=== PATIENT | male | born 1940 | race Asian ===

== ENCOUNTER 2017-08-08 12:46 | Inpatient (IN) | payer MEDICARE, MEDICAID ==
--- NOTE | 2017-08-08 12:55 | ED Physician Chart ---
ED Chief Complaint/HPI - Patient Information Date Seen:: 08/08/17 Time Seen:: 12:40 Chief Complaint:: Fever History of Present Illness:: onset x 2 days of fever, AMS, cough, and congestion; no report of trauma, H/As, S/T, neck pain, C/P, SOB, Abd. Pain, A/N/V/D/C, chills, or urinary s/s Historian:: Patient, EMS Review:: Nurse's Note Reviewed, Old Chart Reviewed, EMS run form Reviewed ED Review of Systems - Review of Systems General/Constitutional: Fever, No chills, No weight loss, No weakness, No diaphoresis, No edema, No loss of appetite Skin: No skin lesions, No rash, No bruising Head: No headache, No light-headedness Eyes: No loss of vision, No pain, No diplopia ENT: No earache, No nasal drainage, No sore throat, No tinnitus Neck: No neck pain, No swelling, No thyromegaly, No stiffness, No mass noted Cardio Vascular: No chest pain, No palpitations, No PND, No orthopnea, No edema Pulmonary: SOB, Cough, No sputum, Wheezing GI: No nausea, No vomiting, No diarrhea, No pain, No melena, No hematochezia, No constipation, No hematemesis G/U: No dysuria, No frequency, No hematuria, No nacturia Musculoskeletal: No bone or joint pain, No back pain, No muscle pain Endocrine: No polyuria, No polydipsia Psychiatric: No prior psych history, No depression, No anxiety, No suicidal ideation, No homicidal ideation, No auditory hallucination, No visual hallucination Hematopoietic: No bruising, No lymphadenopathy Allergic/Immuno: No urticaria, No angioedema Neurological: No syncope, No focal symptoms, No weakness, No paresthesia, No headache, No seizure, No dizziness, Confusion, No vertigo ED Past Medical History - Past Medical History Obtainable: Yes Past Medical History: HTN, CAD, Asthma/COPD, Dyslipidemia, Arthritis, Dementia, Other (PNA; Sepsis) Family History: HTN Social History: Non Smoker, No Alcohol, No Drug Use, , Care Facility Surgical History: None Psychiatricy History: Dementia Medication: Reviewed Family Medical History - Family Member Father History Unknown: Yes ED Physical Exam - Physical Examination General/Constitutional: Awake, Well-developed, well-nourished, Alert, No distress, GCS 15, Non-toxic appearing, Ambulatory Head: Atraumatic Eyes: Lids, conjuctiva normal, PERRL, EOMI Skin: Nl inspection, No rash, No skin lesions, No ecchymosis, Well hydrated, No lymphadenopathy ENMT: External ears, nose nl, TM canals nl, Nasal exam nl, Lips, teeth, gums nl , Oropharynx nl, Tonsils nl Neck: Nontender, Full ROM w/o pain, No JVD, No nuchal rigidity, No bruit, No mass, No stridor Respiratory: Nl effort/Exclusion, Clear to Auscultation, No Wheeze/Rhonchi/Rales Cardio Vascular: RRR, No murmur, gallop, rubs, NL S1 S2, Carotid/Femoral/Distal pulses equal bilaterally GI: No tenderness/rebounding/guarding, No organomegaly, No hernia, Normal BS's, Nondistended, No mass/bruits, No McBurney tenderness : No CVA tenderness Extremities: No tenderness or effusion, Full ROM, normal strength in all extremities, No edema, Normal digits & nails Neuro/Psych: Alert/oriented, DTR's symmetric, Normal sensory exam, Normal motor strength, Judgement/insight normal, Mood normal, Normal gait, No focal deficits Misc: Normal back, No paraspinal tenderness ED Labs/Radiology/EKG Results - Lab Results Comments:: BUN: 90; Cr: 1.5; Na+: 151; LA: 3.18; WBC: 11.8; H/H: 11.1/34.5 - Radiology Results Comments:: + Infiltrate - EKG Interpretations EKG Time:: 12:57 Rate & Rhythm: 77; NSR Comments:: non-specific st-t changes ED Septic Shock - . Is Septic Shock (SBP<90, OR Lactate>4 mmol\L) present?: No ED Reassessment (Disposition) - Reassessment Reassessment Condition:: Improved - Diagnosis Diagnosis:: Dx: PNA; Leukocytosis; Sepsis; Anemia; Hypernatremia; Pre-Renal Azotemia; Dehydration - Aftercare/Follow up Instructions Aftercare/Follow-Up Instructions:: Counseled pt regarding lab results/diagnosis & need follow up, Counseled pt & family regarding lab results/diagnosis & need follow up - Patient Disposition Discharge/Transfer:: Acute Care w/in this hosp Accepting Physician:: Dr. Castro Time Called:: 1500 Time Responded:: 15:00 Admitted to:: Med/Surg Spoke to:: Dr. Castro Admitting Medical Physician:: Dr. Castro Condition at Disposition:: Stable, Improved
[2017-08-08 13:18] LABS: % BASOPHILS 0.8 % (0.0-2.0); % EOSINOPHILS 0.1 % (0.0-5.0); % LYMPHOCYTES 10.2 % (20.0-50.0); % MONOCYTES 12.2 % (2.0-10.0); % NEUTROPHILS 76.7 % (40.0-80.0); BASOPHILE ABSOLUTE 0.1 Th/cumm (0-0.2); HEMATOCRIT 34.5 % (41.0-60); HEMOGLOBIN 11.1 gm/dL (12-16); LYMPHOCYTE ABSOLUTE 1.2 Th/cmm (1.5-3.0); MEAN CELL VOLUME 98.8 fl (80-99); MEAN CORPUSCULAR HEMOGLOBIN 31.9 pg (27.0-31.0); MEAN CORPUSCULAR HGB CONC 32.3 pg (28.0-36.0); MEAN PLATELET VOLUME 8.2 fl; MONOCYTE ABSOLUTE 1.4 Th/cmm (0.3-1.0); NEUTROPHILE ABSOLUTE 9.1 Th/cmm (1.8-8.0); PLATELET COUNT 165 Th/cmm (150-400); RED BLOOD COUNT 3.49 Mil/cmm (3.80-5.80); RED CELL DISTRIBUTION WIDTH 16.2 % (11.5-20.0); WHITE BLOOD COUNT 11.8 Th/cmm (4.8-10.8)
[2017-08-08 13:28] LABS: INR 0.98 (0.5-1.4); PROTHROMBIN TIME (TEST) 10.2 SECONDS (9.5-11.5)
[2017-08-08 13:32] LABS: ALB/GLOB RATIO 0.8 (1.0-1.8); ALBUMIN 3.3 gm/dL (4.2-5.5); ALKALINE PHOSPHATASE 45 U/L (34-104); ANION GAP 13.8 (7.0-16.0); BILIRUBIN,TOTAL 0.6 mg/dL (0.3-1.0); CALCIUM SERUM 9.2 mg/dL (8.6-10.3); CARBON DIOXIDE 28.2 mEq/L (21.0-31.0); CHLORIDE 114 mEq/L (98-107); CREATININE - SERUM 1.5 mg/dL (0.7-1.3); CREATININE KINASE 401 U/L (30-223); GLUCOSE 329 mg/dL (70-105); SGOT 34 U/L (13-39); SGPT/ALT 24 U/L (7-52); SODIUM SERUM 151 mEq/L (136-145); TOTAL PROTEIN,SERUM 7.5 gm/dL (6.0-8.3)
[2017-08-08 13:33] LABS: TROP I 0.04 ng/mL (0.01-0.05)
[2017-08-08 13:34] LABS: BUN - UREA NITROGEN 90 mg/dL (7-25)
--- NOTE | 2017-08-08 14:12 | Diagnostic Imaging Report ---
CHEST X-RAY: AP view INDICATION: pain COMPARISON: None FINDINGS: Chronic lung changes are seen with increased bibasilar lung markings. No focal consolidation or effusions. 3 mm density seen projecting along the left lower hemithorax.. Heart size is normal. Atherosclerosis is noted. Degenerative changes of the spine are noted. IMPRESSION: Chronic lung changes with increased bibasilar lung markings probably also chronic. Faint infiltrate is less likely. Nonspecific 3 mm density projecting along the left lower hemithorax. Atherosclerotic vascular disease.
[2017-08-08] MEDS ORDERED: Sodium Chloride 0.9% 1,000 ML IV ONE (14:41)
[2017-08-08] MEDS ORDERED: Levofloxacin 500mg/100mL 500 MG/100 ML BAG IV ONE ×2 (14:46→14:49)
[2017-08-08 14:51] LABS: URINE MICROSCOPIC INDICATED? YES; URINE SOURCE MIDSTREAM
[2017-08-08 14:58] LABS: URINE BILIRUBIN NEGATIVE (NEGATIVE); URINE BLOOD TRACE (NEGATIVE); URINE GLUCOSE (UA) 100 mg/dL (NEGATIVE); URINE KETONE NEGATIVE (NEGATIVE); URINE LEUKOCYTE ESTERASE NEGATIVE (NEGATIVE); URINE NITRATE NEGATIVE (NEGATIVE); URINE PROTEIN 100 mg/dL (NEGATIVE); URINE UROBILINOGEN 0.2 E.U./dL (0.2 - 1.0)
[2017-08-08 15:04] LABS: URINE CLARITY CLEAR (CLEAR); URINE COLOR YELLOW
[2017-08-08 15:07] LABS: URINE BACTERIA NONE SEEN /hpf (NONE SEEN); URINE EPITHELIAL CELLS NONE SEEN /lpf (FEW); URINE WBC NONE SEEN /hpf (0-5)
[2017-08-08] MEDS ORDERED: D5-0.9%NS 1,000 ML IV SCH (22:00)
[2017-08-09] MEDS: INSULIN ASPART SLIDING SCALE 100 UNITS/ML UNIT SUBQ SCH ×4 (01:23→19:03)
[2017-08-09] MEDS ORDERED: Piperacillin Sodium/Tazobact 2.25 gm Vial IV ONE (05:10)
[2017-08-09 06:31] LABS: % BASOPHILS 0.2 % (0.0-2.0); % EOSINOPHILS 0.1 % (0.0-5.0); % LYMPHOCYTES 16.3 % (20.0-50.0); % MONOCYTES 13.4 % (2.0-10.0); HEMATOCRIT 30.5 % (41.0-60); HEMOGLOBIN 10.1 gm/dL (12-16); LYMPHOCYTE ABSOLUTE 1.6 Th/cmm (1.5-3.0); MEAN CELL VOLUME 99.5 fl (80-99); MEAN CORPUSCULAR HEMOGLOBIN 32.8 pg (27.0-31.0); MEAN PLATELET VOLUME 8.4 fl; MONOCYTE ABSOLUTE 1.3 Th/cmm (0.3-1.0); NEUTROPHILE ABSOLUTE 7.1 Th/cmm (1.8-8.0); PLATELET COUNT 148 Th/cmm (150-400); RED BLOOD COUNT 3.06 Mil/cmm (3.80-5.80); RED CELL DISTRIBUTION WIDTH 16.7 % (11.5-20.0)
[2017-08-09 06:59] LABS: ALB/GLOB RATIO 0.7 (1.0-1.8); ALBUMIN 2.9 gm/dL (4.2-5.5); ALKALINE PHOSPHATASE 37 U/L (34-104); ANION GAP 12.4 (7.0-16.0); BILIRUBIN,TOTAL 0.7 mg/dL (0.3-1.0); CALCIUM SERUM 8.6 mg/dL (8.6-10.3); CHLORIDE 121 mEq/L (98-107); CREATININE - SERUM 1.4 mg/dL (0.7-1.3); GLUCOSE 253 mg/dL (70-105); POTASSIUM SERUM 4.4 mEq/L (3.5-5.1); SGOT 33 U/L (13-39); SGPT/ALT 20 U/L (7-52); SODIUM SERUM 155 mEq/L (136-145); TOTAL PROTEIN,SERUM 6.8 gm/dL (6.0-8.3)
[2017-08-09 07:10] LABS: BUN - UREA NITROGEN 84 mg/dL (7-25)
[2017-08-09] MEDS ORDERED: Acetaminophen 500 MG TAB GT PRN (10:09)
[2017-08-09] MEDS ORDERED: Magnesium Hydroxide (MOM) 30 mL UDC GT PRN (10:09)
[2017-08-09] MEDS ORDERED: Albuterol Nebulizer 2.5mg/3mL HHN PRN (10:09)
[2017-08-09] MEDS ORDERED: Ipratropium Neb 0.5 mg/2.5 mL UD HHN PRN (10:09)
[2017-08-09] MEDS ORDERED: Fleet Enema 135 mL RC PRN (10:09)
[2017-08-09] MEDS ORDERED: Dextrose 5% 1,000 ML IV SCH (10:53)
[2017-08-09] MEDS ORDERED: INSULIN HUMAN REGULAR 100 UNITS/ML UNIT SUBQ SCH (11:30)
--- NOTE | 2017-08-09 15:38 | History & Physical ---
ADMIT DATE: 08/08/2017 CHIEF COMPLAINT: Fever, worsening confusion by nursing staff. HISTORY OF PRESENT ILLNESS: The patient is a 77-year-old [place]ugu [place]ine[place] male admitted from the Emergency Room to telemetry floor of [facility] due to multiple complicated medical conditions. The patient became more confused in the shelter [facility] and the patient was transferred to the Emergency Room and subsequently admitted by our ER physician. The patient's white count is elevated to 11,800 in the Emergency Room. He is also very dehydrated with BUN 90, creatinine 1.5, sodium 151, blood sugar is 329 in the Emergency Room. PAST MEDICAL HISTORY: Including dysphagia, status post CVA, Alzheimer disease, COPD, pneumonia, coronary artery disease, renal insufficiency, diabetes, decubitus ulcer. PAST SURGICAL HISTORY: G-tube placement, PICC line placement. MEDICATIONS: See medication reconciliation list. ALLERGIES: No known drug allergy. FAMILY HISTORY: Noncontributory. SOCIAL HISTORY: The patient smoked before, quit years ago. No history of alcohol, IV drug use. REVIEW OF SYSTEMS: As per HPI. PHYSICAL EXAMINATION: GENERAL: A well-developed, thin male in no acute distress. SKIN: There is skin discoloration. There is decubitus ulcer in the sacral area. VITAL SIGNS: Basically stable. HEENT: Normocephalic, atraumatic. Pupils equal, round, react to light and accommodation. CHEST: Symmetrical. LUNGS: ____ appreciable rhonchi at lung base. HEART: Normal sinus rhythm, S1, S2. ABDOMEN: Benign, soft, nontender. EXTREMITIES: No clubbing, cyanosis. Edema bilateral lower extremity 2+. CRANIOLOGICAL: Unremarkable. LABORATORY DATA: Reviewed, seem from computer. ASSESSMENT AND PLAN: 1. Early sepsis: Panculture order and antibiotics will be adjusted accordingly. 2. Early aspiration pneumonia: IVPB antibiotics, which will be adjusted accordingly. 3. Respiratory insufficiency: Aspiration precaution be exercised. 4. Chronic obstructive pulmonary disease: RT protocol. 5. ____: Probably due to dehydration. We will make sure free water has been provided to the patient. 6. Anemia of chronic disease. 7. Leukocytosis: Multifactorial. 8. Acute kidney injury: Try to avoid nephrotoxic medications if possible. 9. Dehydration: IV fluid. 10. Altered level of consciousness. 11. Metabolic encephalopathy and dementia, status post cerebrovascular accident. 12. Deep venous thrombosis prophylaxis. JOB# [id number]
[2017-08-09 16:50] LABS: A1C % 6.2 % (4.0-6.0)
[2017-08-10] MEDS: INSULIN ASPART SLIDING SCALE 100 UNITS/ML UNIT SUBQ SCH ×4 (00:17→17:58)
[2017-08-10] MEDS ORDERED: [UNRECOGNIZED DRUG - OTHER] TP SCH (09:00)
[2017-08-10] MEDS ORDERED: Non-Formulary Item 1 EA (Collagenase Clostridium Hist. [Santyl] 1 APPL) TP SCH (09:00)
[2017-08-10] MEDS ORDERED: Non-Formulary Item 1 EA (Amino Acids/Protein Hydrolys [Pro-Stat Awc Liquid] 30 ML) GT SCH (09:00)
[2017-08-10] MEDS: Ferrous Sulfate 300 MG/5 ML UDC GT SCH (09:29)
[2017-08-10] MEDS: Multivitamin w/ Minerals Tab GT SCH (09:29)
[2017-08-10] MEDS: Potassium Chloride Elixir 20 mEq /15 mL UDC GT SCH (09:29)
[2017-08-10] MEDS: Enoxaparin 40 mg/0.4 mL 0.4mL Syr SUBQ SCH (09:36)
--- NOTE | 2017-08-10 19:10 | Progress Notes ---
DATE: 08/09/2017 SUBJECTIVE: The patient is lethargic and confused, ____ on and off. OBJECTIVE: VITAL SIGNS: Basically stable. HEENT: Normocephalic, atraumatic. Pupils equal, round, react to light and accommodation. CHEST: Symmetrical. LUNGS: rhonchi at lung base. HEART: Tachycardia on and off. ABDOMEN: Benign, soft, nontender. EXTREMITIES: No clubbing, cyanosis, ____. NEUROLOGICAL: Unremarkable. LABORATORY DATA: Reviewed, seen from computer. BUN 84, creatinine 1.4 down from 90/1.5 yesterday. ASSESSMENT AND PLAN: 1. Sepsis: IVPD antibiotics. Solorzano culture pending. We will adjust antibiotic accordingly. 2. Early pneumonia: Probably due to aspiration. We will continue antibiotics, adjust accordingly. 3. Altered level of consciousness due metabolic encephalopathy and dementia. 4. Respiratory insufficiency: Aspiration precaution to be exercised. 5. Chronic obstructive pulmonary disease: RT protocol. 6. ____: I have change IV fluid to D5 only by removing the normal saline in the IV fluid. 8. Dehydration: Continue IV fluids. 9. Deep venous thrombosis prophylaxis. 10. Wound care. JOB# [id number]
[2017-08-11] MEDS: INSULIN ASPART SLIDING SCALE 100 UNITS/ML UNIT SUBQ SCH ×4 (00:41→17:48)
[2017-08-11 06:46] LABS: HEMATOCRIT 26.5 % (41.0-60); HEMOGLOBIN 8.8 gm/dL (12-16); MANUAL DIFF REQUIRED? YES; MEAN CELL VOLUME 98.4 fl (80-99); MEAN CORPUSCULAR HEMOGLOBIN 32.8 pg (27.0-31.0); MEAN CORPUSCULAR HGB CONC 33.3 pg (28.0-36.0); MEAN PLATELET VOLUME 8.8 fl; PLATELET COUNT 115 Th/cmm (150-400); RED BLOOD COUNT 2.69 Mil/cmm (3.80-5.80); RED CELL DISTRIBUTION WIDTH 15.9 % (11.5-20.0); WHITE BLOOD COUNT 5.6 Th/cmm (4.8-10.8)
[2017-08-11 07:23] LABS: ANION GAP 7.6 (7.0-16.0); BUN - UREA NITROGEN 49 mg/dL (7-25); CALCIUM SERUM 8.4 mg/dL (8.6-10.3); CARBON DIOXIDE 30.1 mEq/L (21.0-31.0); CHLORIDE 127 mEq/L (98-107); CREATININE - SERUM 1.2 mg/dL (0.7-1.3); GLUCOSE 159 mg/dL (70-105); POTASSIUM SERUM 3.7 mEq/L (3.5-5.1)
[2017-08-11 07:24] LABS: BAND NEUTROPHILE 4 % (0-10); BASOPHIL 0 % (0-3); EOSINOPHIL 0 % (0-5); LYMPHOCYTE 34 % (20-50); MONOCYTE 11 % (2-10); NEUTROPHILS 51 % (40-80); TOTAL CELLS COUNTED 100
[2017-08-11 07:25] LABS: PLATELET ESTIMATE SLIGHT DECREASED (NORMAL)
[2017-08-11 07:37] LABS: SODIUM SERUM 161 mEq/L (136-145)
[2017-08-11] MEDS: Multivitamin w/ Minerals Tab GT SCH (09:43)
[2017-08-11] MEDS: Ferrous Sulfate 300 MG/5 ML UDC GT SCH (09:45)
[2017-08-11] MEDS: Potassium Chloride Elixir 20 mEq /15 mL UDC GT SCH (09:46)
[2017-08-11] MEDS: Enoxaparin 40 mg/0.4 mL 0.4mL Syr SUBQ SCH (09:58)
[2017-08-12] MEDS: INSULIN ASPART SLIDING SCALE 100 UNITS/ML UNIT SUBQ SCH ×4 (00:42→18:02)
[2017-08-12 06:55] LABS: % BASOPHILS 0.4 % (0.0-2.0); % EOSINOPHILS 1.6 % (0.0-5.0); % LYMPHOCYTES 28.4 % (20.0-50.0); % MONOCYTES 12.1 % (2.0-10.0); % NEUTROPHILS 57.5 % (40.0-80.0); EOSINOPHILE ABSOLUTE 0.1 Th/cmm (0.1-0.4); HEMATOCRIT 24.5 % (41.0-60); HEMOGLOBIN 8.2 gm/dL (12-16); LYMPHOCYTE ABSOLUTE 1.8 Th/cmm (1.5-3.0); MEAN CELL VOLUME 98.6 fl (80-99); MEAN CORPUSCULAR HEMOGLOBIN 32.9 pg (27.0-31.0); MEAN CORPUSCULAR HGB CONC 33.4 pg (28.0-36.0); MEAN PLATELET VOLUME 8.5 fl; MONOCYTE ABSOLUTE 0.8 Th/cmm (0.3-1.0); NEUTROPHILE ABSOLUTE 3.5 Th/cmm (1.8-8.0); PLATELET COUNT 127 Th/cmm (150-400); RED BLOOD COUNT 2.48 Mil/cmm (3.80-5.80); RED CELL DISTRIBUTION WIDTH 15.5 % (11.5-20.0); WHITE BLOOD COUNT 6.2 Th/cmm (4.8-10.8)
[2017-08-12 07:24] LABS: ALB/GLOB RATIO 0.8 (1.0-1.8); ALBUMIN 2.7 gm/dL (4.2-5.5); ALKALINE PHOSPHATASE 37 U/L (34-104); ANION GAP 7.6 (7.0-16.0); BILIRUBIN,TOTAL 0.7 mg/dL (0.3-1.0); BUN - UREA NITROGEN 39 mg/dL (7-25); CALCIUM SERUM 8.3 mg/dL (8.6-10.3); CHLORIDE 121 mEq/L (98-107); GLUCOSE 204 mg/dL (70-105); POTASSIUM SERUM 3.6 mEq/L (3.5-5.1); SGOT 18 U/L (13-39); SGPT/ALT 18 U/L (7-52); SODIUM SERUM 153 mEq/L (136-145); TOTAL PROTEIN,SERUM 6.2 gm/dL (6.0-8.3)
[2017-08-12] MEDS: Enoxaparin 40 mg/0.4 mL 0.4mL Syr SUBQ SCH ×2 (09:33→09:57)
[2017-08-12] MEDS: Ferrous Sulfate 300 MG/5 ML UDC GT SCH (09:33)
[2017-08-12] MEDS: Multivitamin w/ Minerals Tab GT SCH (09:35)
[2017-08-12] MEDS: Potassium Chloride Elixir 20 mEq /15 mL UDC GT SCH (09:35)
[2017-08-13] MEDS: INSULIN ASPART SLIDING SCALE 100 UNITS/ML UNIT SUBQ SCH ×4 (00:13→19:07)
[2017-08-13 05:40] LABS: EOSINOPHILE ABSOLUTE 0.1 Th/cmm (0.1-0.4); LYMPHOCYTE ABSOLUTE 1.5 Th/cmm (1.5-3.0); MONOCYTE ABSOLUTE 0.5 Th/cmm (0.3-1.0)
[2017-08-13 05:47] LABS: % BASOPHILS 0.6 % (0.0-2.0); % LYMPHOCYTES 25.2 % (20.0-50.0); % MONOCYTES 8.7 % (2.0-10.0); % NEUTROPHILS 63.5 % (40.0-80.0); HEMATOCRIT 26.1 % (41.0-60); HEMOGLOBIN 8.7 gm/dL (12-16); MEAN CELL VOLUME 97.9 fl (80-99); MEAN CORPUSCULAR HEMOGLOBIN 32.4 pg (27.0-31.0); MEAN CORPUSCULAR HGB CONC 33.2 pg (28.0-36.0); MEAN PLATELET VOLUME 8.9 fl; PLATELET COUNT 136 Th/cmm (150-400); RED BLOOD COUNT 2.67 Mil/cmm (3.80-5.80); RED CELL DISTRIBUTION WIDTH 15.6 % (11.5-20.0); WHITE BLOOD COUNT 6.1 Th/cmm (4.8-10.8)
[2017-08-13 05:51] LABS: ALB/GLOB RATIO 0.8 (1.0-1.8); ALBUMIN 2.7 gm/dL (4.2-5.5); ALKALINE PHOSPHATASE 41 U/L (34-104); ANION GAP 7.1 (7.0-16.0); BILIRUBIN,TOTAL 0.5 mg/dL (0.3-1.0); BUN - UREA NITROGEN 32 mg/dL (7-25); CALCIUM SERUM 8.6 mg/dL (8.6-10.3); CARBON DIOXIDE 27.7 mEq/L (21.0-31.0); CHLORIDE 119 mEq/L (98-107); CREATININE - SERUM 0.9 mg/dL (0.7-1.3); GLUCOSE 261 mg/dL (70-105); POTASSIUM SERUM 3.8 mEq/L (3.5-5.1); SGOT 14 U/L (13-39); SGPT/ALT 14 U/L (7-52); SODIUM SERUM 150 mEq/L (136-145); TOTAL PROTEIN,SERUM 6.3 gm/dL (6.0-8.3)
--- NOTE | 2017-08-13 08:29 | Diagnostic Imaging Report ---
CHEST X-RAY: AP view INDICATION: Pneumonia COMPARISON: 08/08/2017 FINDINGS: Chronic lung changes are noted. No focal consolidation identified. Left basal density is noted. Mild cardiomegaly is noted with atherosclerosis. IMPRESSION: Chronic lung changes and left basal density. Small left effusion cannot be completely excluded. Please correlate clinically. Mild cardiomegaly with atherosclerosis.
[2017-08-13] MEDS: Enoxaparin 40 mg/0.4 mL 0.4mL Syr SUBQ SCH (09:13)
[2017-08-13] MEDS: Ferrous Sulfate 300 MG/5 ML UDC GT SCH (09:15)
[2017-08-13] MEDS: Potassium Chloride Elixir 20 mEq /15 mL UDC GT SCH (09:16)
[2017-08-13] MEDS: Multivitamin w/ Minerals Tab GT SCH (09:18)
--- NOTE | 2017-08-15 16:52 | Discharge Summary ---
DATE OF DISCHARGE: 08/14/2017 FINAL DIAGNOSES: 1. Respiratory insufficiency, stabilized. 2. Pneumonia receiving IVPB antibiotic. 3. Sepsis, stabilizing. 4. Hypernatremia, improving with free water administration. 5. Anemia of chronic disease. 6. Dehydration, received IV fluid. 7. ____, resolved. 8. Acute kidney injury on chronic kidney disease, stabilized. HOSPITAL COURSE: The patient is a 77-year-old [place]Cit[place] male admitted due to early sepsis with pneumonia and a marked leukocytosis, dehydration with hypernatremia, etc. The patient received IVPB antibiotics and his initial IV fluids and due to severe hypernatremia, ____ 200 mL of free water every 4 hours via G-tube and I did ____. The patient's condition did stabilize and he was accepted to [facility]. CONDITION: Stable. DISPOSITION: [facility]. DISCHARGE MEDICATIONS: Continue medications from [facility]. DIET: ____. ACTIVITY: Bed rest. FOLLOWUP: Same day in [place]. [facility]# [id number]
== END 2017-08-13 23:25 | DRG 871 ==
LOC: ER 12:46 → TELE 16:00
PROVIDERS: ADMIT Internal Medicine; ATTEND Internal Medicine
DX: A41.9 Sepsis, unspecified organism (principal); J69.0 Pneumonitis due to inhalation of food and vomit; G93.41 Metabolic encephalopathy; N17.9 Acute kidney failure, unspecified; E87.0 Hyperosmolality and hypernatremia; E86.0 Dehydration; I10 Essential (primary) hypertension; I25.10 Atherosclerotic heart disease of native coronary artery without angina pectoris; E78.5 Hyperlipidemia, unspecified; M19.90 Unspecified osteoarthritis, unspecified site; G30.9 Alzheimer's disease, unspecified; F02.80 Dementia in other diseases classified elsewhere, unspecified severity, without behavioral disturbance, psychotic disturbance, mood disturbance, and anxiety; N28.9 Disorder of kidney and ureter, unspecified; D63.8 Anemia in other chronic diseases classified elsewhere; Z86.73 Personal history of transient ischemic attack (TIA), and cerebral infarction without residual deficits; Z87.891 Personal history of nicotine dependence; Z82.49 Family history of ischemic heart disease and other diseases of the circulatory system
CPT/HCPCS: 36415-UA; 71045-TC; 80048-TC; 80053-TC; 81001-TC; 82550-TC; 82553; 82948-90; 83036-90; 83605; 84443-TC; 84484-TC; 85007-TC; 85025-TC; 85027-TC; 85610-TC; 85730-TC; 87070; 87086-90; 93005; 94760; J1650; J1815; J1956; J2543; J7030; J7040; J7042; J7070; Z7610

== ENCOUNTER 2017-11-08 11:53 | Inpatient (IN) | payer MEDICARE, MEDICAID ==
--- NOTE | 2017-11-08 12:29 | ED Physician Chart ---
ED Chief Complaint/HPI - Patient Information Date Seen:: 11/08/17 Time Seen:: 12:00 Chief Complaint:: G-tube replacement History of Present Illness:: Patient's G-tube came out this morning Allergies:: Allergies Allergy/AdvReac Type Severity Reaction Status Date / Time No Known Allergies Allergy Verified 08/08/17 13:08 Vitals:: Vital Signs - 8 hr 11/08/17 12:08 Temp 98.5 F HR 89 RR 22 BP 150/68 O2 Sat % 93 Historian:: EMS Review:: Transfer documents Reviewed ED Review of Systems - Review of Systems General/Constitutional: No fever, No chills, No weight loss, No weakness, No diaphoresis, No edema, No loss of appetite Skin: No skin lesions, No rash, No bruising Head: No headache, No light-headedness Eyes: No loss of vision, No pain, No diplopia ENT: No earache, No nasal drainage, No sore throat, No tinnitus Neck: No neck pain, No swelling, No thyromegaly, No stiffness, No mass noted Cardio Vascular: No chest pain, No palpitations, No PND, No orthopnea, No edema Pulmonary: No SOB, No cough, No sputum, No wheezing GI: No nausea, No vomiting, No diarrhea, No pain, No melena, No hematochezia, No constipation, No hematemesis G/U: No dysuria, No frequency, No hematuria Musculoskeletal: No bone or joint pain, No back pain, No muscle pain Endocrine: No polyuria, No polydipsia Psychiatric: No prior psych history, No depression, No anxiety, No suicidal ideation Hematopoietic: No bruising, No lymphadenopathy Allergic/Immuno: No urticaria, No angioedema Neurological: No syncope, No focal symptoms, No weakness, No paresthesia, No headache, No seizure, No dizziness, No confusion, No vertigo ED Past Medical History - Past Medical History Past Medical History: DM, CAD, Asthma/COPD, Other (chronic renal disease; status post acute renal failure; status post myocardial infarction; decubitus right ankle; status post cerebral infarction; sacral decubiti; decubitus left ankle; atherosclerotic heart disease) Family History: Other (unavailable) Social History: Care Facility Surgical History: PEG/GTube Psychiatricy History: Other (unavailable) Medication: Reviewed Family Medical History - Family Member Father History Unknown: Yes ED Physical Exam - Physical Examination Other Gen/Cons comments:: Nonverbal; contractured; likely ill-appearing Head: Atraumatic Eyes: Lids, conjuctiva normal Skin: No ecchymosis ENMT: External ears, nose nl Other ENMT comments:: Edentulous Neck: No bruit Respiratory: Nl effort/Exclusion Other Respiratory comments:: Breath sounds harsh Other Cardio Vascular comments:: Heart sounds and audible; pulse regular GI: No tenderness/rebounding/guarding, Nondistended Other Neuro/Psych comments:: Nonresponsive ED Labs/Radiology/EKG Results - Lab Results Results: Laboratory Results - last 24 hr 11/08/17 11/08/17 12:55 12:55 WBC 13.3 H RBC 3.57 L Hgb 12.2 Hct 35.1 L MCV 98.4 MCH 34.2 H MCHC Differential 34.7 RDW 16.6 Plt Count 195 MPV 6.4 Neutrophils % 78.6 Lymphocytes % 10.3 L Monocytes % 9.7 Eosinophils % 0.9 Basophils % 0.5 Sodium 132 L D Potassium 4.1 Chloride 98 Carbon Dioxide 28.7 Anion Gap 9.4 BUN 31 H Creatinine 1.0 Est GFR ( Amer) TNP Est GFR (Non-Af Amer) TNP BUN/Creatinine Ratio 31.0 Glucose 207 H Calcium 9.5 Magnesium 2.4 - Radiology Results Results: Chest x-ray showed cardiomegaly and calcification of the aortic arch - EKG Interpretations Rate & Rhythm: normal sinus rhythm with a rate of 93 [place]: normal ED Assessment - Assessment General Assessment: I spoke to Dr. Sherry Castro who wishes to admit the patient. She states the halfway reports the patient has been more confused than normal recently. ED Septic Shock - . Is Septic Shock (SBP<90, OR Lactate>4 mmol\L) present?: No - <6hrs of presentation: Vital Signs: Vital Signs - 8 hr 11/08/17 12:08 Temp 98.5 F HR 89 RR 22 BP 150/68 O2 Sat % 93 ED Reassessment (Disposition) - Reassessment Reassessment Condition:: Improved - Diagnosis Diagnosis:: G-tube replacement; altered mental status; dehydration; leukocytosis - Patient Disposition Admitted to:: Telemetry Condition at Disposition:: Stable, Unchanged
[2017-11-08] MEDS ORDERED: Diatrizoate Meglumine/Diatri 30 mL Sol ONE (12:30)
--- NOTE | 2017-11-08 12:55 | Diagnostic Imaging Report ---
Upper GI with Gastrografin HISTORY: G-tube confirmation COMPARISON: None FINDINGS: Veterinary Surgeon view demonstrates gas-filled loops of bowel in a nonspecific pattern. Percutaneous feeding tube is noted. Degenerative changes of the spine are noted with scoliosis. Atherosclerosis is noted. The second image demonstrates contrast opacification of the stomach and small bowel loops. IMPRESSION: Intraluminal confirmation of patient's percutaneous gastric feeding tube.
--- NOTE | 2017-11-08 12:56 | Diagnostic Imaging Report ---
CHEST X-RAY: AP view INDICATION: COPD COMPARISON: 08/13/2017 FINDINGS: Chronic lung changes are seen. Density possible metallic fragment is seen projecting along left upper quadrant seen on prior exam. No focal consolidation definite effusions. Bibasal atelectasis is noted. Mild cardiomegaly is noted with atherosclerosis. Degenerative changes of spine are noted with scoliosis. IMPRESSION: Chronic lung changes with bibasal atelectatic changes. No focal consolidation identified. Mild cardiomegaly with atherosclerosis.
[2017-11-08 13:07] LABS: % BASOPHILS 0.5 % (0.0-2.0); % EOSINOPHILS 0.9 % (0.0-5.0); % LYMPHOCYTES 10.3 % (20.0-50.0); % MONOCYTES 9.7 % (2.0-10.0); % NEUTROPHILS 78.6 % (40.0-80.0); BASOPHILE ABSOLUTE 0.1 Th/cumm (0-0.2); EOSINOPHILE ABSOLUTE 0.1 Th/cmm (0.1-0.4); HEMATOCRIT 35.1 % (41.0-60); HEMOGLOBIN 12.2 gm/dL (12-16); LYMPHOCYTE ABSOLUTE 1.4 Th/cmm (1.5-3.0); MEAN CELL VOLUME 98.4 fl (80-99); MEAN CORPUSCULAR HEMOGLOBIN 34.2 pg (27.0-31.0); MEAN CORPUSCULAR HGB CONC 34.7 pg (28.0-36.0); MEAN PLATELET VOLUME 6.4 fl; MONOCYTE ABSOLUTE 1.3 Th/cmm (0.3-1.0); NEUTROPHILE ABSOLUTE 10.4 Th/cmm (1.8-8.0); PLATELET COUNT 195 Th/cmm (150-400); RED BLOOD COUNT 3.57 Mil/cmm (3.80-5.80); RED CELL DISTRIBUTION WIDTH 16.6 % (11.5-20.0); WHITE BLOOD COUNT 13.3 Th/cmm (4.8-10.8)
[2017-11-08 13:25] LABS: ANION GAP 9.4 (7.0-16.0); BUN - UREA NITROGEN 31 mg/dL (7-25); CALCIUM SERUM 9.5 mg/dL (8.6-10.3); CARBON DIOXIDE 28.7 mEq/L (21.0-31.0); CHLORIDE 98 mEq/L (98-107); GLUCOSE 207 mg/dL (70-105); MAGNESIUM 2.4 mg/dL (1.9-2.7); POTASSIUM SERUM 4.1 mEq/L (3.5-5.1)
[2017-11-08 13:27] LABS: SODIUM SERUM 132 mEq/L (136-145)
[2017-11-08] MEDS ORDERED: Albuterol Nebulizer 2.5mg/3mL HHN PRN (18:17)
[2017-11-08] MEDS ORDERED: Pneumococcal Vaccine 0.5 mL Vial IM ONE (18:47)
[2017-11-08 19:34] VITALS: BP 150/68
[2017-11-08] MEDS ORDERED: Acetaminophen 500 MG TAB GT PRN (20:37)
[2017-11-08 21:03] LABS: A1C % 6.7 % (4.0-6.0)
[2017-11-08] MEDS ORDERED: Piperacillin Sodium/Tazobact 3.375 gm Vial IV ONE (22:27)
[2017-11-09] MEDS ORDERED: Magnesium Hydroxide (MOM) 30 mL UDC GT PRN (00:14)
[2017-11-09] MEDS ORDERED: Ipratropium Neb 0.5 mg/2.5 mL UD HHN PRN (00:14)
[2017-11-09] MEDS ORDERED: Fleet Enema 135 mL RC PRN (00:14)
--- NOTE | 2017-11-09 01:25 | History & Physical ---
ADMIT DATE: 11/08/2017 CHIEF COMPLAINT: G-tube not working and dislodged by nursing staff. HISTORY OF PRESENT ILLNESS: The patient is a 77-year-old [place] male admitted from the Emergency Room to telemetry floor of [facility] due to multiple complicated medical conditions. The patient was sent to the ER mainly due to G-tube malfunctioning and dislodgement as well as altered level of consciousness. The patient is apparently much more confused than his baseline mental status. His white count is elevated to 13,300. His sodium is 132, BUN 31, creatinine 1.0 consistent with dehydration. The G-tube was replaced in the Emergency Room, but due to the leukocytosis and altered level of consciousness probably from urinary tract infection and early pneumonia, the patient was subsequently admitted to telemetry floor. PAST MEDICAL HISTORY: COPD, pneumonia, coronary heart disease, status post MS, atrial fibrillation rate controlled, status post CVA, urinary tract infection, sepsis, diabetes, anemia, decubitus ulcer. PAST SURGICAL HISTORY: G-tube placement. MEDICATIONS: See medication reconciliation list. ALLERGIES: No known drug allergy. FAMILY HISTORY: Noncontributory. SOCIAL HISTORY: The patient smoked before, quit years ago. No history of alcohol or IV drug abuse. REVIEW OF SYSTEMS: Not feasible. PHYSICAL EXAMINATION: GENERAL: Well-developed male, in no acute distress. SKIN: There is excoriation. VITAL SIGNS: Basically stable. HEENT: Normocephalic, atraumatic. Pupils equal, round, react to light and accommodation. CHEST: Symmetrical. LUNGS: Few wheezing appreciated with rhonchi at lung base. CARDIAC: Normal sinus rhythm. S1, S2. ABDOMEN: Benign, soft, nontender. EXTREMITIES: No clubbing, cyanosis, or edema. . NEUROLOGIC: Unremarkable. LABORATORY DATA: Reviewed as seen from the computer. Sodium 132, BUN 31, creatinine 1.0. WBC 13,300. ASSESSMENT AND PLAN: 1. G-tube malfunctioning, status post replacement and G-tube care provided. 2. Leukocytosis: Multifactorial and workup in progress. Urine culture and blood culture ordered. Antibiotics will be adjusted accordingly. 3. Dysphagia, aspiration precaution be emphasized. 4. Urinary tract infection: Empiric antibiotics started, will be adjusted accordingly. 5. Hyponatremia: Rule out SIADH. 6. Altered level of consciousness due to metabolic encephalopathy and dementia. 7. Dehydration: IV fluids. 8. Diabetes: Sliding scale insulin low dose. 9. Status post cerebrovascular accident. 10. DVT prophylaxis. 11. History of decubitus ulcer. JOB# [id number]
[2017-11-09] MEDS ORDERED: Piperacillin Sodium/Tazobact 3.375 gm Vial IV ONE (06:43)
--- NOTE | 2017-11-09 08:52 | Diagnostic Imaging Report ---
CHEST X-RAY: AP view INDICATION: Pneumonia COMPARISON: 11/08/2017 FINDINGS: Chronic lung changes are seen with increased right basal lung markings. No focal consolidation or effusions. Heart size is borderline prominent. Atherosclerosis is noted. IMPRESSION: Increased right basal lung markings favoring chronic lung changes. No focal consolidation identified.
[2017-11-09] MEDS ORDERED: Non-Formulary Item 1 EA (Amino Acids/Protein Hydrolys [Pro-Stat Awc Liquid] 30 ML) GT SCH (09:00)
[2017-11-09] MEDS ORDERED: Non-Formulary Item 1 EA (Collagenase Clostridium Hist. [Santyl] 1 APPL) TP SCH (09:00)
[2017-11-09] MEDS: Ferrous Sulfate 300 MG/5 ML UDC GT SCH (09:05)
[2017-11-09] MEDS: Multivitamin w/ Minerals Tab GT SCH (09:06)
[2017-11-09] MEDS: Enoxaparin 40 mg/0.4 mL 0.4mL Syr SUBQ SCH (09:07)
[2017-11-09] MEDS ORDERED: VTE Chemical Prophylaxis Screen/Admission MC PRN (12:27)
--- NOTE | 2017-11-10 | Internal Medicine Prog Note ---
Internal Medicine Subjective - Subjective Service Date: 11/09/17 Patient seen and examined:: without staff Patient is:: asleep, non-verbal, arousable, in bed Per staff patient has:: no adverse event Internal Medicine Objective - Results Result Diagrams: 11/08/17 12:55 11/08/17 12:55 Recent Labs: Laboratory Last Values WBC 13.3 Th/cmm (4.8-10.8) H 11/08/17 12:55 RBC 3.57 Mil/cmm (3.80-5.80) L 11/08/17 12:55 Hgb 12.2 gm/dL (12-16) 11/08/17 12:55 Hct 35.1 % (41.0-60) L 11/08/17 12:55 MCV 98.4 fl (80-99) 11/08/17 12:55 MCH 34.2 pg (27.0-31.0) H 11/08/17 12:55 MCHC Differential 34.7 pg (28.0-36.0) 11/08/17 12:55 RDW 16.6 % (11.5-20.0) 11/08/17 12:55 Plt Count 195 Th/cmm (150-400) 11/08/17 12:55 MPV 6.4 fl 11/08/17 12:55 Neutrophils % 78.6 % (40.0-80.0) 11/08/17 12:55 Lymphocytes % 10.3 % (20.0-50.0) L 11/08/17 12:55 Monocytes % 9.7 % (2.0-10.0) 11/08/17 12:55 Eosinophils % 0.9 % (0.0-5.0) 11/08/17 12:55 Basophils % 0.5 % (0.0-2.0) 11/08/17 12:55 Sodium 132 mEq/L (136-145) L D 11/08/17 12:55 Potassium 4.1 mEq/L (3.5-5.1) 11/08/17 12:55 Chloride 98 mEq/L (98-107) 11/08/17 12:55 Carbon Dioxide 28.7 mEq/L (21.0-31.0) 11/08/17 12:55 Anion Gap 9.4 (7.0-16.0) 11/08/17 12:55 BUN 31 mg/dL (7-25) H 11/08/17 12:55 Creatinine 1.0 mg/dL (0.7-1.3) 11/08/17 12:55 Est GFR ( Amer) TNP 11/08/17 12:55 Est GFR (Non-Af Amer) TNP 11/08/17 12:55 BUN/Creatinine Ratio 31.0 11/08/17 12:55 Glucose 207 mg/dL (70-105) H 11/08/17 12:55 POC Glucose 181 MG/DL (70 - 105) H 11/09/17 21:23 Hemoglobin A1c % 6.7 % (4.0-6.0) H 11/08/17 12:55 Calcium 9.5 mg/dL (8.6-10.3) 11/08/17 12:55 Magnesium 2.4 mg/dL (1.9-2.7) 11/08/17 12:55 - Physical Exam Vitals and I&O: Vital Signs Temp 99.5 F 11/09/17 08:00 Pulse 89 11/09/17 19:23 Resp 18 11/09/17 19:23 BP 96/40 11/09/17 12:15 Pulse Ox 97 11/09/17 19:23 Intake & Output 11/09/17 11/09/17 11/10/17 06:59 18:59 06:59 Intake Total 570 100 400 Output Total 3 Balance 567 100 400 Weight (lbs) 56.699 kg 56.699 kg 56.699 kg Intake: Intake, IV Amount 50 100 Piperacillin Sodium/ 50 100 Tazobact 3.375 gm In Sodium Chloride 0.9% 50 ml @ 100 mls/hr IV Q8H [facility] Rx#:[id number] Tube Feeding 400 TPN/PPN 400 Other 120 Output: Stool 3 Other: # Voids 2 Stool Characteristics Soft Soft Brown Brown Weight Source Bedscale Bedscale Bedscale Active Medications: Current Medications Acetaminophen (Tylenol) 650 mg GT Q4HR PRN PRN Reason: Mild Pain or Fever >101 Stop: 01/07/18 20:36 Last Admin: 11/09/17 09:06 Dose: 650 mg Acetaminophen (Tylenol Extra Strength) 1,000 mg GT Q4HR PRN PRN Reason: MOD PAIN Stop: 01/07/18 20:36 Last Admin: 11/09/17 21:08 Dose: 1,000 mg Albuterol Sulfate (Albuterol 2.5mg/3ml Neb Ud) 2.5 mg HHN Q4HRT PRN PRN Reason: sob Stop: 01/07/18 18:16 Ascorbic Acid (Vitamin C) 500 mg GT DAILY [facility] Stop: 01/08/18 08:59 Last Admin: 11/09/17 09:06 Dose: 500 mg Bisacodyl (Dulcolax 10 Mg Supp) 10 mg RC DAILY PRN PRN Reason: IF MOM INEFFECTIVE Stop: 01/08/18 00:13 [place] Oil/Swedish Balsam/Trypsin (Venelex) 1 appl TP DAILY [facility] Stop: 01/09/18 08:59 Docusate Sodium (Colace) 100 mg PO DAILY [facility] Stop: 01/08/18 08:59 Last Admin: 11/09/17 09:06 Dose: 100 mg Enoxaparin Sodium (Lovenox) 40 mg SUBQ DAILY [facility] Stop: 01/08/18 08:59 Last Admin: 11/09/17 09:07 Dose: 40 mg Ferrous Sulfate (Iron) 450 mg GT DAILY [facility] Stop: 01/08/18 08:59 Last Admin: 11/09/17 09:05 Dose: 450 mg Furosemide (Lasix) 20 mg GT DAILY [facility] Stop: 01/08/18 08:59 Last Admin: 11/09/17 09:05 Dose: 20 mg Piperacillin Sod/Tazobactam (Sod 3.375 gm/ Sodium Chloride) 50 mls @ 100 mls/ hr IV Q8H [facility] Stop: 01/07/18 22:24 Last Admin: 11/09/17 23:00 Dose: 100 mls/hr Ipratropium [place] (Atrovent Neb 0.5mg/2.5ml) 0.5 mg HHN Q6HRT PRN PRN Reason: Shortness Of Breath/WHEEZING Stop: 01/08/18 00:13 Magnesium Hydroxide (Milk Of Magnesia) 30 ml GT HS PRN PRN Reason: Constipation Stop: 01/08/18 00:13 Metoprolol Tartrate (Lopressor) 100 mg GT Q12H [facility] Stop: 01/08/18 00:14 Last Admin: 11/09/17 12:15 Dose: Not Given Miscellaneous (Vte Chemical Prophylaxis Screen/ Admission) 1 ea [facility] PRN PRN PRN Reason: PROTOCOL Stop: 01/08/18 12:26 Mupirocin (Bactroban Oint) 1 appl NS BID [facility] Stop: 11/14/17 09:01 Last Admin: 11/09/17 17:19 Dose: 1 appl Nitroglycerin (Nitrostat) 0.4 mg SL Q5MIN PRN PRN Reason: Chest Pain Stop: 01/08/18 00:13 Sodium Phosphate (Fleet Enema) 135 ml RC Q48H PRN PRN Reason: IF DULCOLAX INEFFECTIVE Stop: 01/08/18 00:13 Zinc Sulfate (Zinc Sulfate) 220 mg GT DAILY [facility] Stop: 01/08/18 08:59 Last Admin: 11/09/17 09:06 Dose: 220 mg General: weak, lethargic, congested, demented HEENT: NC/AT, PERRLA, EOMI Neck: Supple, No JVD, No LAD Lungs: wheezing, ronchi Cardiovascular: RRR, Normal S1, Normal S2 Abdomen: soft Internal Medicine Assmt/Plan - Assessment Assessment: ALOC: multifactorial, observe. Leukocytosis: IVPB ABX, repeat CBC. Dehydration: IVF. S/P Gtube replacement. UTI: adjust ABX accordingly. DM: SSRI Low dose. COPD: RT protocol. s/p CVA. decubitus ulcer: wound care. Nutritional Asmnt/Malnutr-PDOC - Dietary Evaluation Malnutrition Findings (Please click <Entered> for more info): Nutritional Asmnt/Malnutrition Start: 11/09/17 17: 35 Text: Status: Active Freq: Protocol: Document 11/09/17 17:45 LCHENG (Rec: 11/09/17 18:00 LCHENG [email or web address]) Nutritional Asmnt/Malnutrition Patient General Information Nutritional Screening High Risk Consult Diagnosis gtube replacement, dyhydration Pertinent Medical Hx/Surgical Hx DM, CAD, asthma/COPD, CKD, acute renal failure, myocardial infarction, decubitus, cerebral infarction , atherosclerotic heart disease, PEG/Gtube Subjective Information Pt seen sleeping in bed at time of visit. Consult received for wound. Verified TF running at 50ml at this time. glucose 207 at admission noted. Current Diet Order/ Nutrition Support glucerna 1.2 at 50ml/hr continuous Pertinent Medications vit C, colace, Iron, lasix, piperacillin, zinc Pertinent Labs 11/08 Na 132, BUN 31, glucose 207, POC 182, A1c 6.7 Nutritional Hx/Data Height 1.7 m Height (Calculated Centimeters) 170.2 Current Weight (lbs) 56.699 kg Weight (Calculated Kilograms) 56.7 Weight (Calculated Grams) 29228.0 [place] Body Weight 148 Body Mass Index (BMI) 19.5 Weight Status Approriate GI Symptoms GI Symptoms None Last BM not indicated Difficult in: None Skin Integrity/Comment: ernestina Farrell Estimated Nutritional Goals BEE in Kcals: Using Current wt Calories/Kcals/Kg 23-27 Kcals Calculated 2452-7244 Protein: Using Current wt Protein g/k-1.2 Protein Calculated 67-80 Fluid: ml 1541-1809ml (1ml/kcal) Nutritional Problem 1. Problem Problem altered nutrition related labs Etiology hx of DM Signs/Symptoms: glucose 207, POC 182, A1c 6.7 Malnutrition Alert Is there a minimum of two criteria No selected? Query Text:Check all the applicable criteria. A minimum of two criteria are recommended for diagnosis of either severe or non-severe malnutrition. Malnutrition Related to Morbid Obesity Malnutrition related to morbid obesity No Intervention/Recommendation Comments 1. Continue with current TF regimen Glucerna 1.2 at 50ml/ hr continuous. It provides 1440kcal, 72g protein, 966ml free water, meeting 100% of nutritional needs 2. Monitor TF rate, tolerance, wt, skin integrity and labs 3. F/U as moderate risk in 3-5 days, 11/12-11/14 Expected Outcomes/Goals Expected Outcomes/Goals 1. Pt to meet at least 75% of nutritional needs via nutrition support with tolerance 2. Wt stability, skin to remain intact, labs to approach WNL.
[2017-11-10 06:14] LABS: % BASOPHILS 0.7 % (0.0-2.0); % EOSINOPHILS 2.8 % (0.0-5.0); % LYMPHOCYTES 15.2 % (20.0-50.0); % MONOCYTES 14.1 % (2.0-10.0); % NEUTROPHILS 67.2 % (40.0-80.0); BASOPHILE ABSOLUTE 0.1 Th/cumm (0-0.2); EOSINOPHILE ABSOLUTE 0.3 Th/cmm (0.1-0.4); HEMATOCRIT 36.1 % (41.0-60); HEMOGLOBIN 12.4 gm/dL (12-16); LYMPHOCYTE ABSOLUTE 1.6 Th/cmm (1.5-3.0); MEAN CELL VOLUME 102.2 fl (80-99); MEAN CORPUSCULAR HEMOGLOBIN 35.1 pg (27.0-31.0); MEAN CORPUSCULAR HGB CONC 34.3 pg (28.0-36.0); MEAN PLATELET VOLUME 7.8 fl; MONOCYTE ABSOLUTE 1.4 Th/cmm (0.3-1.0); NEUTROPHILE ABSOLUTE 6.8 Th/cmm (1.8-8.0); PLATELET COUNT 118 Th/cmm (150-400); RED BLOOD COUNT 3.53 Mil/cmm (3.80-5.80); RED CELL DISTRIBUTION WIDTH 16.6 % (11.5-20.0); WHITE BLOOD COUNT 10.2 Th/cmm (4.8-10.8)
[2017-11-10 06:25] LABS: ANION GAP 12.4 (7.0-16.0); BUN - UREA NITROGEN 31 mg/dL (7-25); CALCIUM SERUM 9.2 mg/dL (8.6-10.3); CARBON DIOXIDE 24.9 mEq/L (21.0-31.0); CHLORIDE 106 mEq/L (98-107); CREATININE - SERUM 1.3 mg/dL (0.7-1.3); GLUCOSE 168 mg/dL (70-105); POTASSIUM SERUM 4.3 mEq/L (3.5-5.1); SODIUM SERUM 139 mEq/L (136-145)
[2017-11-10] MEDS: Enoxaparin 40 mg/0.4 mL 0.4mL Syr SUBQ SCH (08:52)
[2017-11-10] MEDS: Venelex 60gm Tube TP SCH (08:55)
[2017-11-10] MEDS: Multivitamin w/ Minerals Tab GT SCH (08:56)
[2017-11-10] MEDS: Ferrous Sulfate 300 MG/5 ML UDC GT SCH (08:56)
--- NOTE | 2017-11-10 22:30 | Internal Medicine Prog Note ---
Internal Medicine Subjective - Subjective Service Date: 11/10/17 Patient seen and examined:: without staff Patient is:: asleep, non-verbal, arousable, in bed Per staff patient has:: no adverse event Internal Medicine Objective - Results Result Diagrams: 11/10/17 05:15 11/10/17 05:15 Recent Labs: Laboratory Last Values WBC 10.2 Th/cmm (4.8-10.8) 11/10/17 05:15 RBC 3.53 Mil/cmm (3.80-5.80) L 11/10/17 05:15 Hgb 12.4 gm/dL (12-16) 11/10/17 05:15 Hct 36.1 % (41.0-60) L 11/10/17 05:15 MCV 102.2 fl (80-99) H 11/10/17 05:15 MCH 35.1 pg (27.0-31.0) H 11/10/17 05:15 MCHC Differential 34.3 pg (28.0-36.0) 11/10/17 05:15 RDW 16.6 % (11.5-20.0) 11/10/17 05:15 Plt Count 118 Th/cmm (150-400) L 11/10/17 05:15 MPV 7.8 fl 11/10/17 05:15 Neutrophils % 67.2 % (40.0-80.0) 11/10/17 05:15 Lymphocytes % 15.2 % (20.0-50.0) L 11/10/17 05:15 Monocytes % 14.1 % (2.0-10.0) H 11/10/17 05:15 Eosinophils % 2.8 % (0.0-5.0) 11/10/17 05:15 Basophils % 0.7 % (0.0-2.0) 11/10/17 05:15 Sodium 139 mEq/L (136-145) 11/10/17 05:15 Potassium 4.3 mEq/L (3.5-5.1) 11/10/17 05:15 Chloride 106 mEq/L (98-107) 11/10/17 05:15 Carbon Dioxide 24.9 mEq/L (21.0-31.0) 11/10/17 05:15 Anion Gap 12.4 (7.0-16.0) 11/10/17 05:15 BUN 31 mg/dL (7-25) H 11/10/17 05:15 Creatinine 1.3 mg/dL (0.7-1.3) 11/10/17 05:15 Est GFR ( Amer) TNP 11/10/17 05:15 Est GFR (Non-Af Amer) TNP 11/10/17 05:15 BUN/Creatinine Ratio 23.8 11/10/17 05:15 Glucose 168 mg/dL (70-105) H 11/10/17 05:15 POC Glucose 184 MG/DL (70 - 105) H 11/10/17 06:14 Hemoglobin A1c % 6.7 % (4.0-6.0) H 11/08/17 12:55 Calcium 9.2 mg/dL (8.6-10.3) 11/10/17 05:15 Magnesium 2.4 mg/dL (1.9-2.7) 11/08/17 12:55 - Physical Exam Vitals and I&O: Vital Signs Temp 99.0 F 11/10/17 19:48 Pulse 96 11/10/17 19:48 Resp 18 11/10/17 20:00 BP 119/65 11/10/17 19:48 Pulse Ox 98 11/10/17 19:48 Intake & Output 11/10/17 11/10/17 11/11/17 06:59 18:59 06:59 Intake Total 1170 50 Output Total 2 Balance 1168 50 Weight (lbs) 56.699 kg Intake: Intake, IV Amount 100 50 Piperacillin Sodium/ 100 50 Tazobact 3.375 gm In Sodium Chloride 0.9% 50 ml @ 100 mls/hr IV Q8H [facility] Rx#:[id number] Tube Feeding 950 Other 120 Output: Stool 2 Other: # Voids 3 # Bowel Movements 2 Stool Characteristics Soft Brown Weight Source Bedscale Active Medications: Current Medications Acetaminophen (Tylenol) 650 mg GT Q4HR PRN PRN Reason: Mild Pain or Fever >101 Stop: 01/07/18 20:36 Last Admin: 11/09/17 09:06 Dose: 650 mg Acetaminophen (Tylenol Extra Strength) 1,000 mg GT Q4HR PRN PRN Reason: MOD PAIN Stop: 01/07/18 20:36 Last Admin: 11/09/17 21:08 Dose: 1,000 mg Albuterol Sulfate (Albuterol 2.5mg/3ml Neb Ud) 2.5 mg HHN Q4HRT PRN PRN Reason: sob Stop: 01/07/18 18:16 Ascorbic Acid (Vitamin C) 500 mg GT DAILY [facility] Stop: 01/08/18 08:59 Last Admin: 11/10/17 08:55 Dose: 500 mg Bisacodyl (Dulcolax 10 Mg Supp) 10 mg RC DAILY PRN PRN Reason: IF MOM INEFFECTIVE Stop: 01/08/18 00:13 [place] Oil/[place] Balsam/Trypsin (Venelex) 1 appl TP DAILY [facility] Stop: 01/09/18 08:59 Last Admin: 11/10/17 08:55 Dose: 1 appl Docusate Sodium (Colace) 100 mg PO DAILY [facility] Stop: 01/08/18 08:59 Last Admin: 11/10/17 08:55 Dose: 100 mg Enoxaparin Sodium (Lovenox) 40 mg SUBQ DAILY [facility] Stop: 01/08/18 08:59 Last Admin: 11/10/17 08:52 Dose: 40 mg Ferrous Sulfate (Iron) 450 mg GT DAILY [facility] Stop: 01/08/18 08:59 Last Admin: 11/10/17 08:56 Dose: 450 mg Furosemide (Lasix) 20 mg GT DAILY [facility] Stop: 01/08/18 08:59 Last Admin: 11/10/17 08:56 Dose: 20 mg Piperacillin Sod/Tazobactam (Sod 3.375 gm/ Sodium Chloride) 50 mls @ 100 mls/ hr IV Q8H [facility] Stop: 01/07/18 22:24 Last Admin: 11/10/17 21:25 Dose: 100 mls/hr Ipratropium [place] (Atrovent Neb 0.5mg/2.5ml) 0.5 mg HHN Q6HRT PRN PRN Reason: Shortness Of Breath/WHEEZING Stop: 01/08/18 00:13 Magnesium Hydroxide (Milk Of Magnesia) 30 ml GT HS PRN PRN Reason: Constipation Stop: 01/08/18 00:13 Metoprolol Tartrate (Lopressor) 100 mg GT Q12H [facility] Stop: 01/08/18 00:14 Last Admin: 11/10/17 13:05 Dose: Not Given Miscellaneous (Vte Chemical Prophylaxis Screen/ Admission) 1 ea MC PRN PRN PRN Reason: PROTOCOL Stop: 01/08/18 12:26 Mupirocin (Bactroban Oint) 1 appl NS BID [facility] Stop: 11/14/17 09:01 Last Admin: 11/10/17 17:17 Dose: 1 appl Nitroglycerin (Nitrostat) 0.4 mg SL Q5MIN PRN PRN Reason: Chest Pain Stop: 01/08/18 00:13 Sodium Phosphate (Fleet Enema) 135 ml RC Q48H PRN PRN Reason: IF DULCOLAX INEFFECTIVE Stop: 01/08/18 00:13 Zinc Sulfate (Zinc Sulfate) 220 mg GT DAILY [facility] Stop: 01/08/18 08:59 Last Admin: 11/10/17 08:56 Dose: 220 mg General: weak, lethargic, congested, demented HEENT: NC/AT, PERRLA, EOMI Neck: Supple, No JVD, No LAD Lungs: wheezing, ronchi Cardiovascular: RRR, Normal S1, Normal S2 Abdomen: soft Internal Medicine Assmt/Plan - Assessment Assessment: COPD: RT protocol. ALOC: multifactorial, observe. Leukocytosis: resolving? continue IVPB ABX, repeat CBC. Dehydration: IVF. S/P Gtube replacement. UTI: adjust ABX accordingly. DM: SSRI Low dose. s/p CVA. decubitus ulcer: wound care. Nutritional Asmnt/Malnutr-PDOC - Dietary Evaluation Malnutrition Findings (Please click <Entered> for more info): Nutritional Asmnt/Malnutrition Start: 11/09/17 17: 35 Text: Status: Active Freq: Protocol: Document 11/09/17 17:45 LCHENG (Rec: 11/09/17 18:00 [email or web address] [email or web address]) Nutritional Asmnt/Malnutrition Patient General Information Nutritional Screening High Risk Consult Diagnosis gtube replacement, dyhydration Pertinent Medical Hx/Surgical Hx DM, CAD, asthma/COPD, CKD, acute renal failure, myocardial infarction, decubitus, cerebral infarction , atherosclerotic heart disease, PEG/Gtube Subjective Information Pt seen sleeping in bed at time of visit. Consult received for wound. Verified TF running at 50ml at this time. glucose 207 at admission noted. Current Diet Order/ Nutrition Support glucerna 1.2 at 50ml/hr continuous Pertinent Medications vit C, colace, Iron, lasix, piperacillin, zinc Pertinent Labs 11/08 Na 132, BUN 31, glucose 207, POC 182, A1c 6.7 Nutritional Hx/Data Height 1.7 m Height (Calculated Centimeters) 170.2 Current Weight (lbs) 56.699 kg Weight (Calculated Kilograms) 56.7 Weight (Calculated Grams) 46891.0 [place] Body Weight 148 Body Mass Index (BMI) 19.5 Weight Status Approriate GI Symptoms GI Symptoms None Last BM not indicated Difficult in: None Skin Integrity/Comment: ernestina Farrell Estimated Nutritional Goals BEE in Kcals: Using Current wt Calories/Kcals/Kg 23-27 Kcals Calculated 1363-3075 Protein: Using Current wt Protein g/k-1.2 Protein Calculated 67-80 Fluid: ml 1541-1809ml (1ml/kcal) Nutritional Problem 1. Problem Problem altered nutrition related labs Etiology hx of DM Signs/Symptoms: glucose 207, POC 182, A1c 6.7 Malnutrition Alert Is there a minimum of two criteria No selected? Query Text:Check all the applicable criteria. A minimum of two criteria are recommended for diagnosis of either severe or non-severe malnutrition. Malnutrition Related to Morbid Obesity Malnutrition related to morbid obesity No Intervention/Recommendation Comments 1. Continue with current TF regimen Glucerna 1.2 at 50ml/ hr continuous. It provides 1440kcal, 72g protein, 966ml free water, meeting 100% of nutritional needs 2. Monitor TF rate, tolerance, wt, skin integrity and labs 3. F/U as moderate risk in 3-5 days, 11/12-11/14 Expected Outcomes/Goals Expected Outcomes/Goals 1. Pt to meet at least 75% of nutritional needs via nutrition support with tolerance 2. Wt stability, skin to remain intact, labs to approach WNL.
[2017-11-11] MEDS: Enoxaparin 40 mg/0.4 mL 0.4mL Syr SUBQ SCH (08:17)
[2017-11-11] MEDS: Venelex 60gm Tube TP SCH (08:21)
[2017-11-11] MEDS: Multivitamin w/ Minerals Tab GT SCH (08:22)
[2017-11-11] MEDS: Ferrous Sulfate 300 MG/5 ML UDC GT SCH (08:22)
--- NOTE | 2017-11-12 08:18 | Diagnostic Imaging Report ---
Portable chest x-ray HISTORY: Cough Exam is limited due to patient rotation. The right apical region is obscured by the patient's overlying head. No focal pulmonary processes. IMPRESSION: 1. Limited exam with no definite acute focal pulmonary processes
[2017-11-12] MEDS: Enoxaparin 40 mg/0.4 mL 0.4mL Syr SUBQ SCH (08:20)
[2017-11-12] MEDS: Multivitamin w/ Minerals Tab GT SCH (08:23)
[2017-11-12] MEDS: Venelex 60gm Tube TP SCH (08:24)
[2017-11-12] MEDS: Ferrous Sulfate 300 MG/5 ML UDC GT SCH (08:24)
[2017-11-12] MEDS ORDERED: Probiotic Screen MC PRN (09:22)
--- NOTE | 2017-11-12 11:19 | Internal Medicine Prog Note ---
Internal Medicine Subjective - Subjective Service Date: 11/11/17 (late entry due to internet problem at home) Patient seen and examined:: without staff Patient is:: asleep, non-verbal, arousable, in bed Per staff patient has:: no adverse event Internal Medicine Objective - Results Result Diagrams: 11/10/17 05:15 11/10/17 05:15 Recent Labs: Laboratory Last Values WBC 10.2 Th/cmm (4.8-10.8) 11/10/17 05:15 RBC 3.53 Mil/cmm (3.80-5.80) L 11/10/17 05:15 Hgb 12.4 gm/dL (12-16) 11/10/17 05:15 Hct 36.1 % (41.0-60) L 11/10/17 05:15 MCV 102.2 fl (80-99) H 11/10/17 05:15 MCH 35.1 pg (27.0-31.0) H 11/10/17 05:15 MCHC Differential 34.3 pg (28.0-36.0) 11/10/17 05:15 RDW 16.6 % (11.5-20.0) 11/10/17 05:15 Plt Count 118 Th/cmm (150-400) L 11/10/17 05:15 MPV 7.8 fl 11/10/17 05:15 Neutrophils % 67.2 % (40.0-80.0) 11/10/17 05:15 Lymphocytes % 15.2 % (20.0-50.0) L 11/10/17 05:15 Monocytes % 14.1 % (2.0-10.0) H 11/10/17 05:15 Eosinophils % 2.8 % (0.0-5.0) 11/10/17 05:15 Basophils % 0.7 % (0.0-2.0) 11/10/17 05:15 Sodium 139 mEq/L (136-145) 11/10/17 05:15 Potassium 4.3 mEq/L (3.5-5.1) 11/10/17 05:15 Chloride 106 mEq/L (98-107) 11/10/17 05:15 Carbon Dioxide 24.9 mEq/L (21.0-31.0) 11/10/17 05:15 Anion Gap 12.4 (7.0-16.0) 11/10/17 05:15 BUN 31 mg/dL (7-25) H 11/10/17 05:15 Creatinine 1.3 mg/dL (0.7-1.3) 11/10/17 05:15 Est GFR ( Amer) TNP 11/10/17 05:15 Est GFR (Non-Af Amer) TNP 11/10/17 05:15 BUN/Creatinine Ratio 23.8 11/10/17 05:15 Glucose 168 mg/dL (70-105) H 11/10/17 05:15 POC Glucose 184 MG/DL (70 - 105) H 11/10/17 06:14 Hemoglobin A1c % 6.7 % (4.0-6.0) H 11/08/17 12:55 Calcium 9.2 mg/dL (8.6-10.3) 11/10/17 05:15 Magnesium 2.4 mg/dL (1.9-2.7) 11/08/17 12:55 - Physical Exam Vitals and I&O: Vital Signs Temp 97.4 F 11/12/17 08:50 Pulse 79 11/12/17 08:50 Resp 17 11/12/17 08:50 BP 125/96 11/12/17 08:50 Pulse Ox 98 11/12/17 08:50 Intake & Output 11/11/17 11/12/17 11/12/17 18:59 06:59 18:59 Intake Total 50 800 Balance 50 800 Weight (lbs) 63.049 kg Intake: Intake, IV Amount 50 50 Piperacillin Sodium/ 50 50 Tazobact 3.375 gm In Sodium Chloride 0.9% 50 ml @ 100 mls/hr IV Q8H [facility] Rx#:[id number] Tube Feeding 600 Other 150 Other: # Voids 2 # Bowel Movements 1 Weight Source Bedscale Active Medications: Current Medications Acetaminophen (Tylenol) 650 mg GT Q4HR PRN PRN Reason: Mild Pain or Fever >101 Stop: 01/07/18 20:36 Last Admin: 11/09/17 09:06 Dose: 650 mg Acetaminophen (Tylenol Extra Strength) 1,000 mg GT Q4HR PRN PRN Reason: MOD PAIN Stop: 01/07/18 20:36 Last Admin: 11/09/17 21:08 Dose: 1,000 mg Albuterol Sulfate (Albuterol 2.5mg/3ml Neb Ud) 2.5 mg HHN Q4HRT PRN PRN Reason: sob Stop: 01/07/18 18:16 Ascorbic Acid (Vitamin C) 500 mg GT DAILY [facility] Stop: 01/08/18 08:59 Last Admin: 11/12/17 08:24 Dose: 500 mg Bisacodyl (Dulcolax 10 Mg Supp) 10 mg RC DAILY PRN PRN Reason: IF MOM INEFFECTIVE Stop: 01/08/18 00:13 [place] Oil/[place] Balsam/Trypsin (Venelex) 1 appl TP DAILY [facility] Stop: 01/09/18 08:59 Last Admin: 11/12/17 08:24 Dose: 1 appl Docusate Sodium (Colace) 100 mg PO DAILY [facility] Stop: 01/08/18 08:59 Last Admin: 11/12/17 08:23 Dose: 100 mg Enoxaparin Sodium (Lovenox) 40 mg SUBQ DAILY [facility] Stop: 01/08/18 08:59 Last Admin: 11/12/17 08:20 Dose: 40 mg Ferrous Sulfate (Iron) 450 mg GT DAILY [facility] Stop: 01/08/18 08:59 Last Admin: 11/12/17 08:24 Dose: 450 mg Furosemide (Lasix) 20 mg GT DAILY [facility] Stop: 01/08/18 08:59 Last Admin: 11/12/17 08:23 Dose: 20 mg Piperacillin Sod/Tazobactam (Sod 3.375 gm/ Sodium Chloride) 50 mls @ 100 mls/ hr IV Q8H [facility] Stop: 01/07/18 22:24 Last Admin: 11/12/17 05:29 Dose: 100 mls/hr Ipratropium [place] (Atrovent Neb 0.5mg/2.5ml) 0.5 mg HHN Q6HRT PRN PRN Reason: Shortness Of Breath/WHEEZING Stop: 01/08/18 00:13 Lactobacillus Rhamnosus (Culturelle 15b) 1 each PO DAILY [facility] Stop: 01/11/18 13:59 Magnesium Hydroxide (Milk Of Magnesia) 30 ml GT HS PRN PRN Reason: Constipation Stop: 01/08/18 00:13 Metoprolol Tartrate (Lopressor) 100 mg GT Q12H [facility] Stop: 01/08/18 00:14 Last Admin: 11/12/17 00:40 Dose: 100 mg Miscellaneous (Vte Chemical Prophylaxis Screen/ Admission) 1 ea MC PRN PRN PRN Reason: PROTOCOL Stop: 01/08/18 12:26 Miscellaneous (Probiotic Screen) 1 ea MC PRN PRN PRN Reason: PROTOCOL Stop: 01/11/18 09:21 Mupirocin (Bactroban Oint) 1 appl NS BID [facility] Stop: 11/14/17 09:01 Last Admin: 11/12/17 08:33 Dose: 1 appl Nitroglycerin (Nitrostat) 0.4 mg SL Q5MIN PRN PRN Reason: Chest Pain Stop: 01/08/18 00:13 Sodium Phosphate (Fleet Enema) 135 ml RC Q48H PRN PRN Reason: IF DULCOLAX INEFFECTIVE Stop: 01/08/18 00:13 Zinc Sulfate (Zinc Sulfate) 220 mg GT DAILY [facility] Stop: 01/08/18 08:59 Last Admin: 11/12/17 08:23 Dose: 220 mg General: weak, lethargic, congested, demented HEENT: NC/AT, PERRLA, EOMI Neck: Supple, No JVD, No LAD Lungs: wheezing, ronchi Cardiovascular: RRR, Normal S1, Normal S2 Abdomen: soft Internal Medicine Assmt/Plan - Assessment Assessment: UTI: adjust ABX accordingly. urine C&S ordered on admission, still no results yet. COPD: RT protocol. ALOC: multifactorial, observe. Leukocytosis: resolving? continue IVPB ABX, repeat CBC. Dehydration: IVF. S/P Gtube replacement. DM: SSRI Low dose. s/p CVA. decubitus ulcer: wound care. Nutritional Asmnt/Malnutr-PDOC - Dietary Evaluation Malnutrition Findings (Please click <Entered> for more info): Nutritional Asmnt/Malnutrition Start: 11/09/17 17: 35 Text: Status: Active Freq: Protocol: Document 11/09/17 17:45 ALEJANDROG (Rec: 11/09/17 18:00 JUSTINA [email or web address]) Nutritional Asmnt/Malnutrition Patient General Information Nutritional Screening High Risk Consult Diagnosis gtube replacement, dyhydration Pertinent Medical Hx/Surgical Hx DM, CAD, asthma/COPD, CKD, acute renal failure, myocardial infarction, decubitus, cerebral infarction , atherosclerotic heart disease, PEG/Gtube Subjective Information Pt seen sleeping in bed at time of visit. Consult received for wound. Verified TF running at 50ml at this time. glucose 207 at admission noted. Current Diet Order/ Nutrition Support glucerna 1.2 at 50ml/hr continuous Pertinent Medications vit C, colace, Iron, lasix, piperacillin, zinc Pertinent Labs 11/08 Na 132, BUN 31, glucose 207, POC 182, A1c 6.7 Nutritional Hx/Data Height 1.7 m Height (Calculated Centimeters) 170.2 Current Weight (lbs) 56.699 kg Weight (Calculated Kilograms) 56.7 Weight (Calculated Grams) 45092.0 [place] Body Weight 148 Body Mass Index (BMI) 19.5 Weight Status Approriate GI Symptoms GI Symptoms None Last BM not indicated Difficult in: None Skin Integrity/Comment: ernestina Farrell Estimated Nutritional Goals BEE in Kcals: Using Current wt Calories/Kcals/Kg 23-27 Kcals Calculated 5203-9471 Protein: Using Current wt Protein g/k-1.2 Protein Calculated 67-80 Fluid: ml 1541-1809ml (1ml/kcal) Nutritional Problem 1. Problem Problem altered nutrition related labs Etiology hx of DM Signs/Symptoms: glucose 207, POC 182, A1c 6.7 Malnutrition Alert Is there a minimum of two criteria No selected? Query Text:Check all the applicable criteria. A minimum of two criteria are recommended for diagnosis of either severe or non-severe malnutrition. Malnutrition Related to Morbid Obesity Malnutrition related to morbid obesity No Intervention/Recommendation Comments 1. Continue with current TF regimen Glucerna 1.2 at 50ml/ hr continuous. It provides 1440kcal, 72g protein, 966ml free water, meeting 100% of nutritional needs 2. Monitor TF rate, tolerance, wt, skin integrity and labs 3. F/U as moderate risk in 3-5 days, 11/12-11/14 Expected Outcomes/Goals Expected Outcomes/Goals 1. Pt to meet at least 75% of nutritional needs via nutrition support with tolerance 2. Wt stability, skin to remain intact, labs to approach WNL.
[2017-11-12] MEDS ORDERED: Lactobacillus Rhamnosus GG 15 Billion CFU CAP.SPRINK PO SCH (14:00)
--- NOTE | 2017-11-13 00:49 | Discharge Summary ---
DATE OF DISCHARGE: 11/12/2017 FINAL DIAGNOSES: 1. G-tube malfunctioning, fixed. 2. Leukocytosis, resolving. 3. Dehydration, on IV hydration. 4. Urinary tract infection, on IVPB antibiotics. Urine culture results still not available yet. 5. Hyponatremia. 6. Altered level of consciousness. 7. Metabolic encephalopathy, dementia. 8. Dehydration, on IV fluid. 9. Out of control diabetes. HOSPITAL COURSE: The patient is a 77-year-old male admitted due to G-tube malfunctioning and altered level of consciousness as well as dehydration and probable urinary tract infection with leukocytosis. Empiric antibiotic started and urine culture result is not available yet. The patient's hyponatremia corrected with IV fluid. He has out of control diabetes as well. The patient's condition stabilized. He is accepted to [facility]. DISCHARGE CONDITION: Stable. DISPOSITION: [facility]. DISCHARGE MEDICATIONS: Continue medication form here. DIET: Continue G-tube feeding. ACTIVITY: Bed rest with physical therapy. FOLLOWUP: Same day in [place]. [facility]# [id number]
== END 2017-11-12 20:50 | DRG 393 ==
LOC: ER 11:53 → TELE 14:32 → MSI 11-12 18:10
PROVIDERS: ADMIT Internal Medicine; ATTEND Internal Medicine
PROC: 0D20XUZ Change Feeding Device in Upper Intestinal Tract, External Approach (ICD-10-PCS; principal; 2017-11-08)
DX: K94.23 Gastrostomy malfunction (principal); G93.41 Metabolic encephalopathy; J18.9 Pneumonia, unspecified organism; N39.0 Urinary tract infection, site not specified; E87.1 Hypo-osmolality and hyponatremia; J44.0 Chronic obstructive pulmonary disease with (acute) lower respiratory infection; R13.10 Dysphagia, unspecified; E86.0 Dehydration; L89.90 Pressure ulcer of unspecified site, unspecified stage; I25.10 Atherosclerotic heart disease of native coronary artery without angina pectoris; E11.22 Type 2 diabetes mellitus with diabetic chronic kidney disease; N18.9 Chronic kidney disease, unspecified; I25.2 Old myocardial infarction; I48.91 Unspecified atrial fibrillation; F03.90 Unspecified dementia, unspecified severity, without behavioral disturbance, psychotic disturbance, mood disturbance, and anxiety; Y83.8 Other surgical procedures as the cause of abnormal reaction of the patient, or of later complication, without mention of misadventure at the time of the procedure; Y92.89 Other specified places as the place of occurrence of the external cause; Z86.73 Personal history of transient ischemic attack (TIA), and cerebral infarction without residual deficits
CPT/HCPCS: 36415-UA; 71045-TC; 80048-TC; 82948-90; 83036-90; 83735-TC; 85025-TC; 87086-90; 93005; 94760; J1650; J2543; Z7610

== ENCOUNTER 2017-12-06 18:20 | Inpatient (IN) | payer MEDICARE, MEDICAID ==
--- NOTE | 2017-12-06 18:44 | ED Physician Chart ---
ED Chief Complaint/HPI - Patient Information Date Seen:: 12/06/17 Time Seen:: 18:35 Chief Complaint:: fever History of Present Illness:: Patient had a temperature of 101.8 at his extended care facility. He hasn't occasional cough. Patient is nonverbal. Allergies:: Allergies Allergy/AdvReac Type Severity Reaction Status Date / Time No Known Allergies Allergy Verified 08/08/17 13:08 Historian:: EMS Review:: Transfer documents Reviewed ED Review of Systems - Review of Systems General/Constitutional: Fever Skin: Skin lesions Head: No headache Eyes: No loss of vision ENT: No earache Neck: No neck pain Cardio Vascular: No chest pain Pulmonary: Cough GI: No nausea, No vomiting G/U: No dysuria Musculoskeletal: No bone or joint pain Endocrine: No polyuria Psychiatric: Prior psych history Hematopoietic: No bruising Allergic/Immuno: No urticaria Neurological: No syncope ED Past Medical History - Past Medical History Past Medical History: DM, Asthma/COPD, Dementia, Other (metabolic encephalopathy ; history of leukocytosis; decubiti both ankles; atherosclerotic heart disease; renal failure) Family History: Other (not available) Social History: Care Facility Surgical History: other (unavailable) Psychiatricy History: None Medication: Reviewed Family Medical History - Family Member Father History Unknown: Yes ED Physical Exam - Physical Examination Other Gen/Cons comments:: Nonresponsive and contractured Head: Atraumatic Eyes: Lids, conjuctiva normal Other Skin comments:: Ankles and feet bandaged ENMT: External ears, nose nl Other ENMT comments:: Edentulous Neck: No nuchal rigidity Respiratory: Nl effort/Exclusion, Clear to Auscultation Cardio Vascular: No murmur, gallop, rubs, NL S1 S2 GI: No tenderness/rebounding/guarding Other Extremities comments:: Extremities contractured Other Neuro/Psych comments:: Patient is a non-responsive ED Labs/Radiology/EKG Results - Lab Results Results: Laboratory Results - last 24 hr 12/06/17 18:55 WBC 12.9 H RBC 3.34 L Hgb 11.7 L Hct 34.8 L MCV 104.2 H MCH 35.0 H MCHC Differential 33.6 RDW 15.2 Plt Count 236 MPV 7.3 Neutrophils % 75.5 Lymphocytes % 14.3 L Monocytes % 9.0 Eosinophils % 0.5 Basophils % 0.7 Laboratory Results - last 24 hr 12/06/17 12/06/17 18:55 18:55 WBC 12.9 H RBC 3.34 L Hgb 11.7 L Hct 34.8 L MCV 104.2 H MCH 35.0 H MCHC Differential 33.6 RDW 15.2 Plt Count 236 MPV 7.3 Neutrophils % 75.5 Lymphocytes % 14.3 L Monocytes % 9.0 Eosinophils % 0.5 Basophils % 0.7 Sodium 146 H Potassium 3.9 Chloride 107 Carbon Dioxide 28.4 Anion Gap 14.5 BUN 71 H Creatinine 1.6 H Est GFR ( Amer) TNP Est GFR (Non-Af Amer) TNP BUN/Creatinine Ratio 44.4 Glucose 382 H Calcium 9.7 Laboratory Results - last 24 hr 12/06/17 12/06/17 18:55 18:55 WBC 12.9 H RBC 3.34 L Hgb 11.7 L Hct 34.8 L MCV 104.2 H MCH 35.0 H MCHC Differential 33.6 RDW 15.2 Plt Count 236 MPV 7.3 Neutrophils % 75.5 Lymphocytes % 14.3 L Monocytes % 9.0 Eosinophils % 0.5 Basophils % 0.7 Sodium 146 H Potassium 3.9 Chloride 107 Carbon Dioxide 28.4 Anion Gap 14.5 BUN 71 H Creatinine 1.6 H Est GFR ( Amer) TNP Est GFR (Non-Af Amer) TNP BUN/Creatinine Ratio 44.4 Glucose 382 H Calcium 9.7 - Radiology Results Results: Chest x-ray showed calcification of the aortic arch; no infiltrate Allergies No Known Allergies Allergy (Verified 08/08/17 13:08) Ambulatory Orders Amino Acids/Protein Hydrolys [Pro-Stat Awc Liquid] 30 ml GT DAILY 08/08/17 Insulin Human Regular [NovoLIN R*] See Protocol SUBQ Q6HR 08/08/17 Acetaminophen [Tylenol Extra Strength] 1,000 mg GT Q4HR PRN tab 08/13/17 Ascorbic Acid [Vitamin C] 500 mg GT DAILY tab 08/13/17 Bisacodyl [Dulcolax 10 Mg Supp] 10 mg RC DAILY PRN sup 08/13/17 Magnesium Hydroxide [Milk of Magnesia] 30 ml GT HS PRN udc 08/13/17 Nitroglycerin [Nitrostat*] 0.4 mg SL Q5MIN PRN tab 08/13/17 Zinc Sulfate 220 mg GT DAILY cap 08/13/17 cloNIDine HCl [Catapres] 0.1 mg GT Q6H PRN tab 08/13/17 Ferrous Sulfate [Iron] 5 ml GT Q12HR 11/08/17 Ipratropium Neb 0.5 mg/2.5 mL [Atrovent Neb 0.5MG/2.5ML] 0.5 mg HHN Q6HRT PRN Multivitamin w/ Minerals [Theragran M] 15 ml GT DAILY 11/08/17 Acetaminophen [Tylenol] 650 mg GT Q4HR PRN tab 11/12/17 Albuterol Nebulizer 2.5mg/3mL [Albuterol Neb UD*] 2.5 mg HHN Q4HRT PRN each 09/24 Ascorbic Acid [Vitamin C] 500 mg GT DAILY tab 11/12/17 Docusate Sodium [Colace] 100 mg PO DAILY cap 11/12/17 Fleet Enema 135 ml RC Q48H PRN btl 11/12/17 Furosemide [Lasix] 20 mg GT DAILY tab 11/12/17 Magnesium Hydroxide [Milk of Magnesia] 30 ml GT HS PRN udc 11/12/17 Metoprolol Tartrate [Lopressor] 100 mg GT Q12H tab 11/12/17 Multivitamin w/ Minerals [Theragran M] 1 tab GT DAILY tab 11/12/17 Mupirocin Oint [Mupirocin*] 1 appl NS BID appl 11/12/17 Nitroglycerin [Nitrostat*] 0.4 mg SL Q5MIN PRN tab 11/12/17 Heparin Sod,Porcine/0.9 % NaCl [Heparin 5,000 Unit/5 ml-Ns] 5,000 unit SQ Q12HR 12/06/17 Lactobacillus Rhamnosus GG 15B [Culturelle 15B] 1 each GT DAILY 12/06/17 Intake & Output 12/05/17 12/06/17 12/07/17 06:59 06:59 06:59 Weight (lbs) 63.049 kg Medications Sodium Chloride (Nacl 0.9%) 1,000 mls @ 0 mls/hr IV .Q0M ONE Stop: 12/06/17 20:18 Last Admin: 12/06/17 20:56 Dose: 999 mls/hr Insulin Human Regular (Novolin R) 5 units IV X1 ONE Stop: 12/06/17 20:19 Last Admin: 12/06/17 20:56 Dose: 5 units Orders 12/06/17 18:38 CHEST, 1 VIEW [RAD] Stat 12/06/17 19:05 BLOOD CULTURE-[place]RI[place] Stat 12/06/17 19:40 URINALYSIS W/ MICROSCOPIC Stat URINE CULTURE-[place] Stat 12/06/17 20:17 Sodium Chloride 0.9% [NaCL 0.9%] 1,000 ml IV Wide Open 12/06/17 20:18 Insulin Human Regular [NovoLIN R] 5 units IV X1 ONE 12/06/17 20:20 EKG-ELECTROCARDIOGRAM Stat Procedures CHANGE FEEDING DEVICE IN UP INTEST TRACT, [employer] SALES REPRESENTATIVE APPROACH (11/08/17) Vital Signs 12/06/17 19:01 Temp 99.9 F HR 92 RR 18 BP 142/54 O2 Sat % 98 Laboratory Tests WBC 12.9 Th/cmm (4.8-10.8) H 12/06/17 18:55 RBC 3.34 Mil/cmm (3.80-5.80) L 12/06/17 18:55 Hgb 11.7 gm/dL (12-16) L 12/06/17 18:55 Hct 34.8 % (41.0-60) L 12/06/17 18:55 MCV 104.2 fl (80-99) H 12/06/17 18:55 MCH 35.0 pg (27.0-31.0) H 12/06/17 18:55 MCHC Differential 33.6 pg (28.0-36.0) 12/06/17 18:55 RDW 15.2 % (11.5-20.0) 12/06/17 18:55 Plt Count 236 Th/cmm (150-400) 12/06/17 18:55 MPV 7.3 fl 12/06/17 18:55 Neutrophils % 75.5 % (40.0-80.0) 12/06/17 18:55 Lymphocytes % 14.3 % (20.0-50.0) L 12/06/17 18:55 Monocytes % 9.0 % (2.0-10.0) 12/06/17 18:55 Eosinophils % 0.5 % (0.0-5.0) 12/06/17 18:55 Basophils % 0.7 % (0.0-2.0) 12/06/17 18:55 Sodium 146 mEq/L (136-145) H 12/06/17 18:55 Potassium 3.9 mEq/L (3.5-5.1) 12/06/17 18:55 Chloride 107 mEq/L (98-107) 12/06/17 18:55 Carbon Dioxide 28.4 mEq/L (21.0-31.0) 12/06/17 18:55 Anion Gap 14.5 (7.0-16.0) 12/06/17 18:55 BUN 71 mg/dL (7-25) H 12/06/17 18:55 Creatinine 1.6 mg/dL (0.7-1.3) H 12/06/17 18:55 Est GFR ( Amer) TNP 12/06/17 18:55 Est GFR (Non-Af Amer) TNP 12/06/17 18:55 BUN/Creatinine Ratio 44.4 12/06/17 18:55 Glucose 382 mg/dL (70-105) H 12/06/17 18:55 Calcium 9.7 mg/dL (8.6-10.3) 12/06/17 18:55 Urine Color YELLOW 12/06/17 19:40 Urine Clarity SLIGHTLY HAZY (CLEAR) 12/06/17 19:40 Urine pH 7.5 (4.6 - 8.0) 12/06/17 19:40 Ur Specific Winter 1.015 (1.005-1.030) 12/06/17 19:40 Urine Protein 100 mg/dL (NEGATIVE) H 12/06/17 19:40 Urine Glucose (UA) 500 mg/dL (NEGATIVE) H 12/06/17 19:40 Urine Ketones NEGATIVE mg/dL (NEGATIVE) 12/06/17 19:40 Urine Blood LARGE (NEGATIVE) H 12/06/17 19:40 Urine Nitrate NEGATIVE (NEGATIVE) 12/06/17 19:40 Urine Bilirubin NEGATIVE (NEGATIVE) 12/06/17 19:40 Urine Urobilinogen 0.2 E.U./dL (0.2 - 1.0) 08/30/18 19:40 Ur Leukocyte Esterase NEGATIVE (NEGATIVE) 12/06/17 19:40 - EKG Interpretations Rate & Rhythm: normal sinus rhythm with a rate of 96 Tea: left axis Comments:: Q waves in lead aVF ED Assessment - Assessment General Assessment: At about 1900 Dr. Castro was in the emergency department and wanted the patient admitted to telemetry. Chest x-ray shows no pneumonia and urinalysis is negative. The etiology of the patient's fever is to be determined. ED Septic Shock - . Is Septic Shock (SBP<90, OR Lactate>4 mmol\L) present?: No ED Reassessment (Disposition) - Reassessment Reassessment Condition:: Unchanged - Diagnosis Diagnosis:: Dehydration; diabetes; hyperglycemia; acute febrile illness; leukocytosis - Patient Disposition Admitted to:: Telemetry Spoke to:: Garret Castro Admitting Medical Physician:: Garret Castro Condition at Disposition:: Stable, Unchanged
[2017-12-06 19:09] LABS: % BASOPHILS 0.7 % (0.0-2.0); % EOSINOPHILS 0.5 % (0.0-5.0); % LYMPHOCYTES 14.3 % (20.0-50.0); % NEUTROPHILS 75.5 % (40.0-80.0); BASOPHILE ABSOLUTE 0.1 Th/cumm (0-0.2); EOSINOPHILE ABSOLUTE 0.1 Th/cmm (0.1-0.4); HEMATOCRIT 34.8 % (41.0-60); HEMOGLOBIN 11.7 gm/dL (12-16); LYMPHOCYTE ABSOLUTE 1.8 Th/cmm (1.5-3.0); MEAN CELL VOLUME 104.2 fl (80-99); MEAN CORPUSCULAR HGB CONC 33.6 pg (28.0-36.0); MEAN PLATELET VOLUME 7.3 fl; MONOCYTE ABSOLUTE 1.2 Th/cmm (0.3-1.0); NEUTROPHILE ABSOLUTE 9.7 Th/cmm (1.8-8.0); PLATELET COUNT 236 Th/cmm (150-400); RED BLOOD COUNT 3.34 Mil/cmm (3.80-5.80); RED CELL DISTRIBUTION WIDTH 15.2 % (11.5-20.0); WHITE BLOOD COUNT 12.9 Th/cmm (4.8-10.8)
[2017-12-06 19:36] LABS: ANION GAP 14.5 (7.0-16.0); BUN - UREA NITROGEN 71 mg/dL (7-25); CALCIUM SERUM 9.7 mg/dL (8.6-10.3); CARBON DIOXIDE 28.4 mEq/L (21.0-31.0); CHLORIDE 107 mEq/L (98-107); CREATININE - SERUM 1.6 mg/dL (0.7-1.3); GLUCOSE 382 mg/dL (70-105); POTASSIUM SERUM 3.9 mEq/L (3.5-5.1); SODIUM SERUM 146 mEq/L (136-145)
[2017-12-06] MEDS ORDERED: Sodium Chloride 0.9% 1,000 ML IV ONE (20:17)
[2017-12-06] MEDS ORDERED: INSULIN HUMAN REGULAR 100 UNITS/ML UNIT IV ONE (20:18)
[2017-12-06] MEDS ORDERED: INSULIN HUMAN REGULAR 100 UNITS/ML UNIT ONE (20:56)
[2017-12-06 20:59] LABS: URINE BILIRUBIN NEGATIVE (NEGATIVE); URINE BLOOD LARGE (NEGATIVE); URINE GLUCOSE (UA) 500 mg/dL (NEGATIVE); URINE KETONE NEGATIVE (NEGATIVE); URINE LEUKOCYTE ESTERASE NEGATIVE (NEGATIVE); URINE MICROSCOPIC INDICATED? YES; URINE NITRATE NEGATIVE (NEGATIVE); URINE PH 7.5 (4.6 - 8.0); URINE PROTEIN 100 mg/dL (NEGATIVE); URINE SOURCE CATH; URINE UROBILINOGEN 0.2 E.U./dL (0.2 - 1.0)
[2017-12-06 21:09] LABS: URINE COLOR YELLOW
[2017-12-06 21:10] LABS: URINE CLARITY SLIGHTLY HAZY (CLEAR)
[2017-12-06 21:11] LABS: URINE BACTERIA NONE SEEN /hpf (NONE SEEN); URINE EPITHELIAL CELLS OCCASIONAL /lpf (FEW)
[2017-12-06 21:14] LABS: URINE YEAST MODERATE /hpf (NONE SEEN)
[2017-12-06 22:36] LABS: INF A SCREEN NEG FOR INF A; INF B SCREEN NEG FOR INF B
[2017-12-06] MEDS ORDERED: Fleet Enema 135 mL RC PRN (22:56)
[2017-12-06] MEDS ORDERED: Albuterol Nebulizer 2.5mg/3mL HHN PRN (22:56)
[2017-12-06] MEDS ORDERED: Acetaminophen 500 MG TAB GT PRN (22:56)
[2017-12-06] MEDS ORDERED: Magnesium Hydroxide (MOM) 30 mL UDC GT PRN ×2 (22:56)
[2017-12-06] MEDS ORDERED: Ipratropium Neb 0.5 mg/2.5 mL UD HHN PRN (22:56)
[2017-12-06 23:38] VITALS: BP 139/78
--- NOTE | 2017-12-06 23:57 | History & Physical ---
ADMIT DATE: 12/07/2017 CHIEF COMPLAINT: Fever 100 degree went up to 102 degrees after giving Tylenol by the charge nurse. HISTORY OF PRESENT ILLNESS: The patient is a 77-year-old [place] male admitted from the Emergency Room to telemetry floor of [facility] due to multiple complicated medical conditions. I was notified by the charge nurse from [facility] that the patient's fever did not respond to that Tylenol and even went up to 102 degrees Fahrenheit and the patient became more confused. In the Emergency Room, the patient's temperature eventually came down to 99.9 degree Fahrenheit. His white count is elevated to 12,900. He also has severe dehydration and acute kidney injury. BUN 71, creatinine 1.6, sodium 146, blood sugar 382. His UA revealed moderate yeast and I have empirically started the patient on Diflucan 200 mg IVPB daily. Chest x-ray was done, but no official report yet. PAST MEDICAL HISTORY: COPD, pneumonia, status post CVA , diabetes, decubitus ulcer, urinary tract infection, sepsis, anemia, etc. PAST SURGICAL HISTORY: G-tube placement. MEDICATIONS: See medication reconciliation list. ALLERGIES: No known drug allergy. FAMILY HISTORY: Noncontributory. SOCIAL HISTORY: The patient smoked before, quit years ago. No history of alcohol or IV drug use. REVIEW OF SYSTEMS: Not feasible despite much efforts made. PHYSICAL EXAMINATION: GENERAL: Well-developed male, in no acute distress. SKIN: There are multiple decubitus ulcers on the foot and the sacral area. VITAL SIGNS: Basically stable except for fever. HEENT: Normocephalic, atraumatic. Pupils equal, round, react to light and accommodation. CHEST: Symmetrical. LUNGS: Few wheezing appreciated with rhonchi at lung base. CARDIAC: Normal sinus rhythm. S1, S2. ABDOMEN: Benign, soft, nontender. EXTREMITIES: No clubbing, cyanosis, or edema NEUROLOGICAL: Cannot be reliably obtained. LABORATORY DATA: Reviewed as seen from the computer. WBC 12,900. Sodium 146, BUN 71, creatinine 1.6, blood sugar 382. UA revealed moderate yeast. ASSESSMENT AND PLAN: 1. High fever: This is probably multifactorial and I have ordered blood culture and urine culture and chest x-ray. Empiric antibiotics started and will be adjusted accordingly. 2. Leukocytosis: Multifactorial and continue empiric antibiotics and we will adjust accordingly when the blood culture becomes available. 3. Severe dehydration. I have ordered to flush G-tube with 150 mL of water q. 6 hours and make sure the nurse does it; IV fluid with half normal saline at 75 mL per hour ordered. 4. Acute kidney injury: Try to avoid nephrotoxic medication and IV fluids ordered. 5. Yeast urinary tract infection: Diflucan 200 mg IVPB daily ordered. 6. Altered mental condition due to metabolic encephalopathy and dementia. 7. Dysphagia: Continue G-tube feeding. G-tube care provided and aspiration precaution be exercised. 8. DVT prophylaxis. 9. Decubitus ulcer in bilateral feet and sacral area: Continue wound care. Zinc sulfate and vitamin C to facilitate wound healing. JOB# [id number]
[2017-12-07] MEDS ORDERED: Fluconazole 200mg/100mL 200 MG/100 ML BAG IV ONE ×2 (01:15→22:10)
[2017-12-07] MEDS: INSULIN ASPART SLIDING SCALE 100 UNITS/ML UNIT SUBQ SCH ×5 (01:22→23:34)
[2017-12-07] MEDS: Sodium Chloride 0.45% 1,000 ML IV SCH ×2 (01:25→15:59)
[2017-12-07] MEDS ORDERED: Piperacillin Sodium/Tazobact 2.25 gm Vial IV ONE (02:56)
--- NOTE | 2017-12-07 08:18 | Diagnostic Imaging Report ---
CHEST X-RAY: AP view INDICATION: Cough COMPARISON: 11/11/2017 FINDINGS: Left PICC line is seen with tip along the left axillary region. Chronic lung changes are seen with increased left basal lung markings. There may be trace left pleural fluid. Mild cardiomegaly is noted with atherosclerosis. Degenerative changes of the spine are noted. Unchanged metallic density seen projecting along the left diaphragmatic region. IMPRESSION: Increased left basal lung markings which may be due to atelectasis versus developing infiltrate. Mild cardiomegaly with atherosclerosis.
[2017-12-07] MEDS: Multivitamin w/ Minerals Tab GT SCH (08:37)
[2017-12-07] MEDS: Lactobacillus Rhamnosus GG 15 Billion CFU CAP.SPRINK GT SCH (08:37)
[2017-12-07] MEDS: Ferrous Sulfate 300 MG/5 ML UDC GT SCH ×2 (08:37→22:01)
[2017-12-07] MEDS ORDERED: Non-Formulary Item 1 EA (Amino Acids/Protein Hydrolys [Pro-Stat Awc Liquid] 30 ML) GT SCH (09:00)
[2017-12-07] MEDS ORDERED: Multivitamin w/ Minerals Tab GT SCH (09:00)
[2017-12-07] MEDS: Venelex 60gm Tube TP SCH (10:41)
--- NOTE | 2017-12-07 13:49 | Diagnostic Imaging Report ---
Bilateral lower extremity DVT study HISTORY: Pain, rule out DVT COMPARISON: None Technique: Longitudinal and transverse sonographic images of the bilateral lower extremity veins were obtained with doppler analysis. FINDINGS: There is normal compressibility, augmentation and phasicity of the right common femoral, superficial femoral, popliteal, peroneal and posterior tibial veins. No thrombus is visualized. There is normal compressibility, augmentation, and phasicity of the left common femoral, superficial femoral, and popliteal veins. The left peroneal and posterior tibial vein were not visualized due to patient body habitus.. IMPRESSION: Nonvisualization of the left posterior tibial and peroneal veins due to patient body habitus. Otherwise no evidence of DVT formation.
--- NOTE | 2017-12-07 13:51 | Diagnostic Imaging Report ---
Bilateral lower extremity arterial Doppler study HISTORY: Peripheral arterial disease COMPARISON: None Technique: Longitudinal and transverse sonographic images of the bilateral lower extremity arteries were obtained with doppler analysis. FINDINGS: Exam is limited due to patient's medical condition and body habitus. Exam of the right side demonstrates moderate generalized atherosclerotic vascular disease with biphasic waveforms extending from the right common femoral artery to the right tibialis posterior artery. There is monophasic waveform within the right dorsalis pedis artery. Right RACHID is 1.1 Exam of the left side demonstrates moderate to severe atherosclerotic vascular disease. There is biphasic waveforms from the left common femoral artery to the left popliteal artery. Monophasic waveforms of the left tibialis anterior, tibialis posterior, and dorsalis pedis arteries are noted. Left RACHID is 1.2 IMPRESSION: Moderate to severe atherosclerotic vascular disease, left greater than right. No sonographic evidence of occlusion. If indicated CT angiography of the lower extremities may also be obtained.
[2017-12-07 20:11] LABS: A1C % 7.5 % (4.0-6.0)
[2017-12-07] MEDS: Fluconazole 100mg/50mL 100 MG/50 ML BOTTLE IV SCH (22:16)
[2017-12-08] MEDS: INSULIN ASPART SLIDING SCALE 100 UNITS/ML UNIT SUBQ SCH ×5 (01:22→17:35)
[2017-12-08] MEDS: Sodium Chloride 0.45% 1,000 ML IV SCH ×2 (06:50→22:23)
[2017-12-08] MEDS: Lactobacillus Rhamnosus GG 15 Billion CFU CAP.SPRINK GT SCH (08:56)
[2017-12-08] MEDS: Multivitamin w/ Minerals Tab GT SCH (08:56)
[2017-12-08] MEDS: Ferrous Sulfate 300 MG/5 ML UDC GT SCH ×2 (08:57→22:22)
[2017-12-08] MEDS: Venelex 60gm Tube TP SCH (09:12)
--- NOTE | 2017-12-08 11:57 | Internal Medicine Prog Note ---
Internal Medicine Subjective - Subjective Service Date: 12/08/17 Patient seen and examined:: without staff Patient is:: asleep, non-verbal, non-interactive, arousable, in bed Per staff patient has:: no adverse event Internal Medicine Objective - Results Result Diagrams: 12/06/17 18:55 12/06/17 18:55 Recent Labs: Laboratory Last Values WBC 12.9 Th/cmm (4.8-10.8) H 12/06/17 18:55 RBC 3.34 Mil/cmm (3.80-5.80) L 12/06/17 18:55 Hgb 11.7 gm/dL (12-16) L 12/06/17 18:55 Hct 34.8 % (41.0-60) L 12/06/17 18:55 MCV 104.2 fl (80-99) H 12/06/17 18:55 MCH 35.0 pg (27.0-31.0) H 12/06/17 18:55 MCHC Differential 33.6 pg (28.0-36.0) 12/06/17 18:55 RDW 15.2 % (11.5-20.0) 12/06/17 18:55 Plt Count 236 Th/cmm (150-400) 12/06/17 18:55 MPV 7.3 fl 12/06/17 18:55 Neutrophils % 75.5 % (40.0-80.0) 12/06/17 18:55 Lymphocytes % 14.3 % (20.0-50.0) L 12/06/17 18:55 Monocytes % 9.0 % (2.0-10.0) 12/06/17 18:55 Eosinophils % 0.5 % (0.0-5.0) 12/06/17 18:55 Basophils % 0.7 % (0.0-2.0) 12/06/17 18:55 Sodium 146 mEq/L (136-145) H 12/06/17 18:55 Potassium 3.9 mEq/L (3.5-5.1) 12/06/17 18:55 Chloride 107 mEq/L (98-107) 12/06/17 18:55 Carbon Dioxide 28.4 mEq/L (21.0-31.0) 12/06/17 18:55 Anion Gap 14.5 (7.0-16.0) 12/06/17 18:55 BUN 71 mg/dL (7-25) H 12/06/17 18:55 Creatinine 1.6 mg/dL (0.7-1.3) H 12/06/17 18:55 Est GFR ( Amer) TNP 12/06/17 18:55 Est GFR (Non-Af Amer) TNP 12/06/17 18:55 BUN/Creatinine Ratio 44.4 12/06/17 18:55 Glucose 382 mg/dL (70-105) H 12/06/17 18:55 POC Glucose 213 MG/DL (70 - 105) H 12/08/17 11:39 Hemoglobin A1c % 7.5 % (4.0-6.0) H 12/06/17 18:33 Calcium 9.7 mg/dL (8.6-10.3) 12/06/17 18:55 Urine Source CATH 12/06/17 19:40 Urine Color YELLOW 12/06/17 19:40 Urine Clarity SLIGHTLY HAZY (CLEAR) 12/06/17 19:40 Urine pH 7.5 (4.6 - 8.0) 12/06/17 19:40 Ur Specific [place] 1.015 (1.005-1.030) 12/06/17 19:40 Urine Protein 100 mg/dL (NEGATIVE) H 12/06/17 19:40 Urine Glucose (UA) 500 mg/dL (NEGATIVE) H 12/06/17 19:40 Urine Ketones NEGATIVE mg/dL (NEGATIVE) 12/06/17 19:40 Urine Blood LARGE (NEGATIVE) H 12/06/17 19:40 Urine Nitrate NEGATIVE (NEGATIVE) 12/06/17 19:40 Urine Bilirubin NEGATIVE (NEGATIVE) 12/06/17 19:40 Urine Urobilinogen 0.2 E.U./dL (0.2 - 1.0) 12/06/17 19:40 Ur Leukocyte Esterase NEGATIVE (NEGATIVE) 12/06/17 19:40 Urine RBC 10-25 /hpf (0-5) H 12/06/17 19:40 Urine WBC 2-5 /hpf (0-5) 12/06/17 19:40 Ur Epithelial Cells OCCASIONAL /lpf (FEW) 12/06/17 19:40 Urine Bacteria NONE SEEN /hpf (NONE SEEN) 12/06/17 19:40 Urine Yeast MODERATE /hpf (NONE SEEN) H 12/06/17 19:40 Influenza A (Rapid) NEG FOR INF A 12/06/17 21:20 Influenza B (Rapid) NEG FOR INF B 12/06/17 21:20 - Physical Exam Vitals and I&O: Vital Signs Temp 98 F 12/08/17 11:44 Pulse 98 12/08/17 11:44 Resp 18 12/08/17 11:44 BP 131/59 12/08/17 11:44 Pulse Ox 98 12/08/17 11:44 Intake & Output 12/07/17 12/08/17 12/08/17 18:59 06:59 18:59 Intake Total 1100 1850 Output Total 1 Balance 1100 1849 Weight (lbs) 63.231 kg Intake: Intake, IV Amount 1100 1050 Piperacillin Sodium/ 100 50 Tazobact 2.25 gm In Sodium Chloride 0.9% 50 ml @ 100 mls/hr IV Q8H [facility] Rx#:[id number] Sodium Chloride 0.45% 1, 1000 1000 000 ml @ 75 mls/hr IV . [id number] [facility] Rx#:[id number] Oral 0 Tube Feeding 600 Other 200 Output: Urine/Stool Mix 1 Other: # Voids 3 # Bowel Movements 0 Stool Characteristics Soft Soft Black Black Green Green Weight Source Bedscale Active Medications: Current Medications Acetaminophen (Tylenol) 650 mg GT Q4HR PRN PRN Reason: Mild Pain or Fever >101 Stop: 02/04/18 22:55 Acetaminophen (Tylenol Extra Strength) 1,000 mg GT Q4HR PRN PRN Reason: Pain (Moderate) Stop: 02/04/18 22:55 Albuterol Sulfate (Albuterol 2.5mg/3ml Neb Ud) 2.5 mg HHN Q4HRT PRN PRN Reason: Shortness of Breath Stop: 02/04/18 22:55 Ascorbic Acid (Vitamin C) 500 mg GT DAILY [facility] Stop: 02/05/18 08:59 Last Admin: 12/08/17 08:56 Dose: 500 mg Bisacodyl (Dulcolax 10 Mg Supp) 10 mg RC DAILY PRN PRN Reason: IF MOM INEFFECTIVE Stop: 02/04/18 22:55 [place] Oil/[place] Balsam/Trypsin (Venelex) 1 appl TP DAILY [facility] Stop: 02/05/18 08:59 Last Admin: 12/08/17 09:12 Dose: 1 appl Docusate Sodium (Colace) 100 mg PO DAILY [facility] Stop: 02/05/18 08:59 Last Admin: 12/08/17 08:56 Dose: 100 mg Ferrous Sulfate (Iron) 300 mg GT Q12HR [facility] Stop: 02/05/18 08:59 Last Admin: 12/08/17 08:57 Dose: 300 mg Heparin Sodium (Porcine) (Heparin) 5,000 units SUBQ Q12HR [facility] Stop: 02/05/18 08:59 Last Admin: 12/08/17 08:56 Dose: 5,000 units Fluconazole (Diflucan) 100 mg in 50 mls @ 100 mls/hr IV Q24HR [facility] Stop: 02/05/18 21:59 Last Admin: 12/07/17 22:16 Dose: 100 mls/hr Sodium Chloride (Nacl 0.45%) 1,000 mls @ 75 mls/hr IV .[id number] [facility] Stop: 02/04/18 23:14 Last Admin: 12/08/17 06:50 Dose: 75 mls/hr Piperacillin Sod/Tazobactam (Sod 2.25 gm/ Sodium Chloride) 50 mls @ 100 mls/hr IV Q8H [facility] Stop: 02/05/18 01:59 Last Admin: 12/08/17 09:00 Dose: 100 mls/hr Insulin Aspart (Novolog Insulin Sliding Scale) 0 units SUBQ Q6HR [facility]; Protocol Stop: 02/04/18 00:00 Last Admin: 12/08/17 11:49 Dose: 5 units Ipratropium [place] (Atrovent Neb 0.5mg/2.5ml) 0.5 mg HHN Q6HRT PRN PRN Reason: Shortness Of Breath/WHEEZING Stop: 02/04/18 22:55 Lactobacillus Rhamnosus (Culturelle 15b) 1 each GT DAILY [facility] Stop: 02/05/18 08:59 Last Admin: 12/08/17 08:56 Dose: 1 each Magnesium Hydroxide (Milk Of Magnesia) 30 ml GT HS PRN PRN Reason: Constipation Stop: 02/04/18 22:55 Metoprolol Tartrate (Lopressor) 100 mg GT Q12H [facility] Stop: 02/05/18 00:59 Last Admin: 12/08/17 01:22 Dose: 100 mg Mupirocin (Bactroban Oint) 1 appl NS BID [facility] Stop: 02/05/18 08:59 Last Admin: 12/08/17 09:15 Dose: Not Given Nitroglycerin (Nitrostat) 0.4 mg SL Q5MIN PRN PRN Reason: Chest Pain Stop: 02/04/18 22:55 Sodium Phosphate (Fleet Enema) 135 ml RC Q48H PRN PRN Reason: IF DULCOLAX INEFFECTIVE Stop: 02/04/18 22:55 Zinc Sulfate (Zinc Sulfate) 220 mg GT DAILY [facility] Stop: 02/05/18 08:59 Last Admin: 12/08/17 08:56 Dose: 220 mg General: weak, lethargic, congested, demented HEENT: NC/AT, PERRLA, EOMI, anicteric sclerae, throat clear Neck: Supple, No JVD, No LAD Lungs: congested, wheezing, ronchi Cardiovascular: RRR, Normal S1, Normal S2 Abdomen: soft, non-tender, non-distended Extremities: clear, other (left foot decubitus ulcers.) Neurological: no change - Procedures Procedures: Procedures Procedure Code Date CHANGE FEEDING DEVICE IN UP INTEST TRACT, DOPE EDGER APPROACH [id number] 11/08/17 Internal Medicine Assmt/Plan - Assessment Assessment: MATTHIAS: IVF; try to avoid nephrotoxic meds. Dehydration: IVF. Yeast UTI: diflucan IVPB 200mg daily. ALOC: multifactorial. Decubitus ulcers: worst in left foot. Respiratory Insufficiency: aspiration precaution is being exercised. Dysphagia: Gtube care provided. OOCDM: SSRI low dose; may need to adjust meds. Fever: resolving. Nutritional Asmnt/Malnutr-PDOC - Dietary Evaluation Malnutrition Findings (Please click <Entered> for more info): Nutritional Asmnt/Malnutrition Start: 12/07/17 17: 11 Text: Status: Complete Freq: Protocol: Document 12/07/17 17:11 LCHENG (Rec: 12/07/17 17:47 [email or web address]) Nutritional Asmnt/Malnutrition Patient General Information Nutritional Screening High Risk Consult Diagnosis dehydration, hyperglycemia, acute febrile illness Pertinent Medical Hx/Surgical Hx DM, asthma/COPD, dementia, metabilic encephalopathy, leukocytosis, decubiti both ankles, atherosclerotic herat disease, renal failure Subjective Information pt seen resting in bed at time of visit. Consult received for glucseo 382 at admission. Current Diet Order/ Nutrition Support glucerna 1.2 50ml/hr x 20hr, providing 1200kcal, 60g protein Pertinent Medications vit C, colace, iron, novolog, culturelle, piperacillin, nacl 0.45%, zinc Pertinent Labs 12/06 Na 146, BUN 71, Cr 1.6, glucose 382 12/07 POC 190-254 Nutritional Hx/Data Height 1.7 m Height (Calculated Centimeters) 170.2 Current Weight (lbs) 63.049 kg Weight (Calculated Kilograms) 63.0 Weight (Calculated Grams) 74941.3 [place] Body Weight 148 Body Mass Index (BMI) 21.7 Weight Status Approriate GI Symptoms GI Symptoms None Last BM not indicated Difficult in: None Usual diet at home glucerna 1.5 50ml/hr x 20hr Skin Integrity/Comment: decubitus ulceration to right ankle, right toe, left toe, left ankle, scar to sacrum ernestina 11 Estimated Nutritional Goals BEE in Kcals: Using Current wt Calories/Kcals/Kg 25-30 Kcals Calculated 6019-1797 Protein: Using Current wt Protein g/k.2 monitor renal labs Protein Calculated 75 Fluid: ml 1701-2016ml (1ml/kcal) Nutritional Problem 2. Problem Problem increased nutrition needs Etiology impaired skin integrity Signs/Symptoms: decubitus multiple site 1. Problem Problem altered nutrition related labs Etiology hx of renla failure, DM Signs/Symptoms: Na 146, BUN 71, Cr 1.6, glucose 382, POC 190-254 Intervention/Recommendation Comments 1. Recommend increase glucerna 1.2 to 60ml/hr x 20hr. It will provide 1440kcal, 72g protein, 966ml free water, meeting 100% of nutritional needs. PHILL Guy notified. 2. Monitor TF rate, tolerance, wt, skin integrity and labs 3. F/U as high risk in 2-3 days, 12/09-11/09 Expected Outcomes/Goals Expected Outcomes/Goals 1. Pt to meet at least 75% of nutritional needs via nutrition support with tolerance 2. Wt stability, skin to remain intact, labs to approach WNL.
[2017-12-08] MEDS ORDERED: Probiotic Screen MC PRN (13:30)
[2017-12-08] MEDS ORDERED: Fluconazole 200mg/100mL 200 MG/100 ML BAG IV ONE (22:37)
[2017-12-08] MEDS: Fluconazole 100mg/50mL 100 MG/50 ML BOTTLE IV SCH (22:43)
--- NOTE | 2017-12-08 23:40 | Internal Medicine Prog Note ---
Internal Medicine Subjective - Subjective Service Date: 12/07/17 Patient seen and examined:: without staff Patient is:: asleep, non-verbal, non-interactive, arousable, in bed Per staff patient has:: no adverse event Internal Medicine Objective - Results Result Diagrams: 12/06/17 18:55 12/06/17 18:55 Recent Labs: Laboratory Last Values WBC 12.9 Th/cmm (4.8-10.8) H 12/06/17 18:55 RBC 3.34 Mil/cmm (3.80-5.80) L 12/06/17 18:55 Hgb 11.7 gm/dL (12-16) L 12/06/17 18:55 Hct 34.8 % (41.0-60) L 12/06/17 18:55 MCV 104.2 fl (80-99) H 12/06/17 18:55 MCH 35.0 pg (27.0-31.0) H 12/06/17 18:55 MCHC Differential 33.6 pg (28.0-36.0) 12/06/17 18:55 RDW 15.2 % (11.5-20.0) 12/06/17 18:55 Plt Count 236 Th/cmm (150-400) 12/06/17 18:55 MPV 7.3 fl 12/06/17 18:55 Neutrophils % 75.5 % (40.0-80.0) 12/06/17 18:55 Lymphocytes % 14.3 % (20.0-50.0) L 12/06/17 18:55 Monocytes % 9.0 % (2.0-10.0) 12/06/17 18:55 Eosinophils % 0.5 % (0.0-5.0) 12/06/17 18:55 Basophils % 0.7 % (0.0-2.0) 12/06/17 18:55 Sodium 146 mEq/L (136-145) H 12/06/17 18:55 Potassium 3.9 mEq/L (3.5-5.1) 12/06/17 18:55 Chloride 107 mEq/L (98-107) 12/06/17 18:55 Carbon Dioxide 28.4 mEq/L (21.0-31.0) 12/06/17 18:55 Anion Gap 14.5 (7.0-16.0) 12/06/17 18:55 BUN 71 mg/dL (7-25) H 12/06/17 18:55 Creatinine 1.6 mg/dL (0.7-1.3) H 12/06/17 18:55 Est GFR ( Amer) TNP 12/06/17 18:55 Est GFR (Non-Af Amer) TNP 12/06/17 18:55 BUN/Creatinine Ratio 44.4 12/06/17 18:55 Glucose 382 mg/dL (70-105) H 12/06/17 18:55 POC Glucose 258 MG/DL (70 - 105) H 12/08/17 17:24 Hemoglobin A1c % 7.5 % (4.0-6.0) H 12/06/17 18:33 Calcium 9.7 mg/dL (8.6-10.3) 12/06/17 18:55 Urine Source CATH 12/06/17 19:40 Urine Color YELLOW 12/06/17 19:40 Urine Clarity SLIGHTLY HAZY (CLEAR) 12/06/17 19:40 Urine pH 7.5 (4.6 - 8.0) 12/06/17 19:40 Ur Specific [place] 1.015 (1.005-1.030) 12/06/17 19:40 Urine Protein 100 mg/dL (NEGATIVE) H 12/06/17 19:40 Urine Glucose (UA) 500 mg/dL (NEGATIVE) H 12/06/17 19:40 Urine Ketones NEGATIVE mg/dL (NEGATIVE) 12/06/17 19:40 Urine Blood LARGE (NEGATIVE) H 12/06/17 19:40 Urine Nitrate NEGATIVE (NEGATIVE) 12/06/17 19:40 Urine Bilirubin NEGATIVE (NEGATIVE) 12/06/17 19:40 Urine Urobilinogen 0.2 E.U./dL (0.2 - 1.0) 12/06/17 19:40 Ur Leukocyte Esterase NEGATIVE (NEGATIVE) 12/06/17 19:40 Urine RBC 10-25 /hpf (0-5) H 12/06/17 19:40 Urine WBC 2-5 /hpf (0-5) 12/06/17 19:40 Ur Epithelial Cells OCCASIONAL /lpf (FEW) 12/06/17 19:40 Urine Bacteria NONE SEEN /hpf (NONE SEEN) 12/06/17 19:40 Urine Yeast MODERATE /hpf (NONE SEEN) H 12/06/17 19:40 Influenza A (Rapid) NEG FOR INF A 12/06/17 21:20 Influenza B (Rapid) NEG FOR INF B 12/06/17 21:20 - Physical Exam Vitals and I&O: Vital Signs Temp 98.0 F 12/08/17 20:00 Pulse 79 12/08/17 20:00 Resp 18 12/08/17 20:00 BP 156/68 12/08/17 20:00 Pulse Ox 96 12/08/17 20:00 Intake & Output 12/08/17 12/08/17 12/09/17 06:59 18:59 06:59 Intake Total 5779 456 4700 Output Total 1 Balance 6340 913 6801 Weight (lbs) 63.231 kg 64.002 kg Intake: Intake, IV Amount 1100 50 1000 Fluconazole 100mg/50mL 50 100 mg In 50 ml @ 100 mls /hr IV Q24HR [facility] Rx#: [id number] Piperacillin Sodium/ 50 50 Tazobact 2.25 gm In Sodium Chloride 0.9% 50 ml @ 100 mls/hr IV Q8H [facility] Rx#:[id number] Sodium Chloride 0.45% 1, 1000 1000 000 ml @ 75 mls/hr IV . [id number] [facility] Rx#:[id number] Oral 0 200 Tube Feeding 600 700 Other 200 Output: Urine/Stool Mix 1 Other: # Voids 3 3 # Bowel Movements 0 2 Stool Characteristics Soft Soft Soft Black Black Black Green Green Green Weight Source Bedscale Bedscale Active Medications: Current Medications Acetaminophen (Tylenol) 650 mg GT Q4HR PRN PRN Reason: Mild Pain or Fever >101 Stop: 02/04/18 22:55 Acetaminophen (Tylenol Extra Strength) 1,000 mg GT Q4HR PRN PRN Reason: Pain (Moderate) Stop: 02/04/18 22:55 Albuterol Sulfate (Albuterol 2.5mg/3ml Neb Ud) 2.5 mg HHN Q4HRT PRN PRN Reason: Shortness of Breath Stop: 02/04/18 22:55 Ascorbic Acid (Vitamin C) 500 mg GT DAILY [facility] Stop: 02/05/18 08:59 Last Admin: 12/08/17 08:56 Dose: 500 mg Bisacodyl (Dulcolax 10 Mg Supp) 10 mg RC DAILY PRN PRN Reason: IF MOM INEFFECTIVE Stop: 02/04/18 22:55 [place] Oil/[place] Balsam/Trypsin (Venelex) 1 appl TP DAILY [facility] Stop: 02/05/18 08:59 Last Admin: 12/08/17 09:12 Dose: 1 appl Docusate Sodium (Colace) 100 mg PO DAILY [facility] Stop: 02/05/18 08:59 Last Admin: 12/08/17 08:56 Dose: 100 mg Ferrous Sulfate (Iron) 300 mg GT Q12HR [facility] Stop: 02/05/18 08:59 Last Admin: 12/08/17 22:22 Dose: 300 mg Heparin Sodium (Porcine) (Heparin) 5,000 units SUBQ Q12HR [facility] Stop: 02/05/18 08:59 Last Admin: 12/08/17 22:22 Dose: 5,000 units Fluconazole (Diflucan) 100 mg in 50 mls @ 100 mls/hr IV Q24HR [facility] Stop: 02/05/18 21:59 Last Admin: 12/08/17 22:43 Dose: 100 mls/hr Sodium Chloride (Nacl 0.45%) 1,000 mls @ 75 mls/hr IV .[id number] [facility] Stop: 02/04/18 23:14 Last Admin: 12/08/17 22:23 Dose: 75 mls/hr Piperacillin Sod/Tazobactam (Sod 2.25 gm/ Sodium Chloride) 50 mls @ 100 mls/hr IV Q8H [facility] Stop: 02/05/18 01:59 Last Admin: 12/08/17 17:18 Dose: 100 mls/hr Insulin Aspart (Novolog Insulin Sliding Scale) 0 units SUBQ Q6HR [facility]; Protocol Stop: 02/04/18 00:00 Last Admin: 12/08/17 17:35 Dose: 6 units Ipratropium [place] (Atrovent Neb 0.5mg/2.5ml) 0.5 mg HHN Q6HRT PRN PRN Reason: Shortness Of Breath/WHEEZING Stop: 02/04/18 22:55 Lactobacillus Rhamnosus (Culturelle 15b) 1 each GT DAILY [facility] Stop: 02/05/18 08:59 Last Admin: 12/08/17 08:56 Dose: 1 each Magnesium Hydroxide (Milk Of Magnesia) 30 ml GT HS PRN PRN Reason: Constipation Stop: 02/04/18 22:55 Metoprolol Tartrate (Lopressor) 100 mg GT Q12H [facility] Stop: 02/05/18 00:59 Last Admin: 12/08/17 13:44 Dose: 100 mg Miscellaneous (Probiotic Screen) 1 ea MC PRN PRN PRN Reason: PROTOCOL Stop: 02/06/18 13:29 Mupirocin (Bactroban Oint) 1 appl NS BID [facility] Stop: 02/05/18 08:59 Last Admin: 12/08/17 16:36 Dose: Not Given Nitroglycerin (Nitrostat) 0.4 mg SL Q5MIN PRN PRN Reason: Chest Pain Stop: 02/04/18 22:55 Sodium Phosphate (Fleet Enema) 135 ml RC Q48H PRN PRN Reason: IF DULCOLAX INEFFECTIVE Stop: 02/04/18 22:55 Zinc Sulfate (Zinc Sulfate) 220 mg GT DAILY [facility] Stop: 02/05/18 08:59 Last Admin: 12/08/17 08:56 Dose: 220 mg General: weak, lethargic, congested, demented HEENT: NC/AT, PERRLA, EOMI, anicteric sclerae, throat clear Neck: Supple, No JVD, No LAD Lungs: congested, wheezing, ronchi Cardiovascular: RRR, Normal S1, Normal S2 Abdomen: soft, non-tender, non-distended Extremities: clear, other (left foot decubitus ulcers.) Neurological: no change - Procedures Procedures: Procedures Procedure Code Date CHANGE FEEDING DEVICE IN UP INTEST TRACT, ELECTRONICS INSTALLER APPROACH [id number] 11/08/17 Internal Medicine Assmt/Plan - Assessment Assessment: Yeast UTI: diflucan IVPB 200mg daily. MATTHIAS: IVF; try to avoid nephrotoxic meds. Dehydration: IVF. ALOC: multifactorial. Decubitus ulcers: worst in left foot. Respiratory Insufficiency: aspiration precaution is being exercised. Dysphagia: Gtube care provided. OOCDM: SSRI low dose; may need to adjust meds. Fever: resolving. Nutritional Asmnt/Malnutr-PDOC - Dietary Evaluation Malnutrition Findings (Please click <Entered> for more info): Nutritional Asmnt/Malnutrition Start: 12/07/17 17: 11 Text: Status: Complete Freq: Protocol: Document 12/07/17 17:11 LCPRASHANT (Rec: 12/07/17 17:47 LCPRASHANT [email or web address]) Nutritional Asmnt/Malnutrition Patient General Information Nutritional Screening High Risk Consult Diagnosis dehydration, hyperglycemia, acute febrile illness Pertinent Medical Hx/Surgical Hx DM, asthma/COPD, dementia, metabilic encephalopathy, leukocytosis, decubiti both ankles, atherosclerotic herat disease, renal failure Subjective Information pt seen resting in bed at time of visit. Consult received for glucseo 382 at admission. Current Diet Order/ Nutrition Support glucerna 1.2 50ml/hr x 20hr, providing 1200kcal, 60g protein Pertinent Medications vit C, colace, iron, novolog, culturelle, piperacillin, nacl 0.45%, zinc Pertinent Labs 12/06 Na 146, BUN 71, Cr 1.6, glucose 382 12/07 POC 190-254 Nutritional Hx/Data Height 1.7 m Height (Calculated Centimeters) 170.2 Current Weight (lbs) 63.049 kg Weight (Calculated Kilograms) 63.0 Weight (Calculated Grams) 34943.3 [place] Body Weight 148 Body Mass Index (BMI) 21.7 Weight Status Approriate GI Symptoms GI Symptoms None Last BM not indicated Difficult in: None Usual diet at home glucerna 1.5 50ml/hr x 20hr Skin Integrity/Comment: decubitus ulceration to right ankle, right toe, left toe, left ankle, scar to sacrum ernestina 11 Estimated Nutritional Goals BEE in Kcals: Using Current wt Calories/Kcals/Kg 25-30 Kcals Calculated 9576-0362 Protein: Using Current wt Protein g/k.2 monitor renal labs Protein Calculated 75 Fluid: ml 1701-2016ml (1ml/kcal) Nutritional Problem 2. Problem Problem increased nutrition needs Etiology impaired skin integrity Signs/Symptoms: decubitus multiple site 1. Problem Problem altered nutrition related labs Etiology hx of renla failure, DM Signs/Symptoms: Na 146, BUN 71, Cr 1.6, glucose 382, POC 190-254 Intervention/Recommendation Comments 1. Recommend increase glucerna 1.2 to 60ml/hr x 20hr. It will provide 1440kcal, 72g protein, 966ml free water, meeting 100% of nutritional needs. PHILL Guy notified. 2. Monitor TF rate, tolerance, wt, skin integrity and labs 3. F/U as high risk in 2-3 days, 12/09-11/09 Expected Outcomes/Goals Expected Outcomes/Goals 1. Pt to meet at least 75% of nutritional needs via nutrition support with tolerance 2. Wt stability, skin to remain intact, labs to approach WNL.
[2017-12-09] MEDS: INSULIN ASPART SLIDING SCALE 100 UNITS/ML UNIT SUBQ SCH ×4 (00:40→18:29)
[2017-12-09 05:40] LABS: % BASOPHILS 0.7 % (0.0-2.0); % EOSINOPHILS 2.6 % (0.0-5.0); % LYMPHOCYTES 16.7 % (20.0-50.0); % MONOCYTES 12.2 % (2.0-10.0); % NEUTROPHILS 67.8 % (40.0-80.0); BASOPHILE ABSOLUTE 0.1 Th/cumm (0-0.2); EOSINOPHILE ABSOLUTE 0.2 Th/cmm (0.1-0.4); HEMATOCRIT 28.2 % (41.0-60); HEMOGLOBIN 9.6 gm/dL (12-16); LYMPHOCYTE ABSOLUTE 1.3 Th/cmm (1.5-3.0); MEAN CELL VOLUME 104.3 fl (80-99); MEAN CORPUSCULAR HEMOGLOBIN 35.4 pg (27.0-31.0); MEAN CORPUSCULAR HGB CONC 33.9 pg (28.0-36.0); MEAN PLATELET VOLUME 7.3 fl; MONOCYTE ABSOLUTE 0.9 Th/cmm (0.3-1.0); NEUTROPHILE ABSOLUTE 5.2 Th/cmm (1.8-8.0); PLATELET COUNT 190 Th/cmm (150-400); RED CELL DISTRIBUTION WIDTH 15.4 % (11.5-20.0); WHITE BLOOD COUNT 7.7 Th/cmm (4.8-10.8)
[2017-12-09 05:58] LABS: ALB/GLOB RATIO 0.8 (1.0-1.8); ALBUMIN 2.6 gm/dL (4.2-5.5); ALKALINE PHOSPHATASE 41 U/L (34-104); ANION GAP 9.1 (7.0-16.0); BILIRUBIN,TOTAL 0.5 mg/dL (0.3-1.0); BUN - UREA NITROGEN 31 mg/dL (7-25); CALCIUM SERUM 8.4 mg/dL (8.6-10.3); CARBON DIOXIDE 23.3 mEq/L (21.0-31.0); CHLORIDE 114 mEq/L (98-107); CREATININE - SERUM 1.1 mg/dL (0.7-1.3); GLUCOSE 197 mg/dL (70-105); POTASSIUM SERUM 3.4 mEq/L (3.5-5.1); SGOT 11 U/L (13-39); SGPT/ALT 8 U/L (7-52); SODIUM SERUM 143 mEq/L (136-145); TOTAL PROTEIN,SERUM 5.8 gm/dL (6.0-8.3)
[2017-12-09] MEDS: Lactobacillus Rhamnosus GG 15 Billion CFU CAP.SPRINK GT SCH (08:44)
[2017-12-09] MEDS: Multivitamin w/ Minerals Tab GT SCH (08:44)
[2017-12-09] MEDS: Ferrous Sulfate 300 MG/5 ML UDC GT SCH ×2 (08:44→20:56)
[2017-12-09] MEDS: Venelex 60gm Tube TP SCH (08:45)
[2017-12-09] MEDS ORDERED: Potassium Chloride Elixir 20 mEq /15 mL UDC GT ONE (12:00)
[2017-12-09] MEDS: Sodium Chloride 0.45% 1,000 ML IV SCH (14:50)
[2017-12-09] MEDS ORDERED: Fluconazole 200mg/100mL 200 MG/100 ML BAG IV ONE (20:13)
[2017-12-09] MEDS: Fluconazole 100mg/50mL 100 MG/50 ML BOTTLE IV SCH (21:02)
--- NOTE | 2017-12-10 00:01 | Internal Medicine Prog Note ---
Internal Medicine Subjective - Subjective Service Date: 12/09/17 Patient seen and examined:: without staff Patient is:: asleep, non-verbal, non-interactive, arousable, in bed Per staff patient has:: no adverse event Internal Medicine Objective - Results Result Diagrams: 12/09/17 05:25 12/09/17 05:25 Recent Labs: Laboratory Last Values WBC 7.7 Th/cmm (4.8-10.8) 12/09/17 05:25 RBC 2.70 Mil/cmm (3.80-5.80) L 12/09/17 05:25 Hgb 9.6 gm/dL (12-16) L 12/09/17 05:25 Hct 28.2 % (41.0-60) L 12/09/17 05:25 MCV 104.3 fl (80-99) H 12/09/17 05:25 MCH 35.4 pg (27.0-31.0) H 12/09/17 05:25 MCHC Differential 33.9 pg (28.0-36.0) 12/09/17 05:25 RDW 15.4 % (11.5-20.0) 12/09/17 05:25 Plt Count 190 Th/cmm (150-400) 12/09/17 05:25 MPV 7.3 fl 12/09/17 05:25 Neutrophils % 67.8 % (40.0-80.0) 12/09/17 05:25 Lymphocytes % 16.7 % (20.0-50.0) L 12/09/17 05:25 Monocytes % 12.2 % (2.0-10.0) H 12/09/17 05:25 Eosinophils % 2.6 % (0.0-5.0) 12/09/17 05:25 Basophils % 0.7 % (0.0-2.0) 12/09/17 05:25 Sodium 143 mEq/L (136-145) 12/09/17 05:25 Potassium 3.4 mEq/L (3.5-5.1) L 12/09/17 05:25 Chloride 114 mEq/L (98-107) H 12/09/17 05:25 Carbon Dioxide 23.3 mEq/L (21.0-31.0) 12/09/17 05:25 Anion Gap 9.1 (7.0-16.0) 12/09/17 05:25 BUN 31 mg/dL (7-25) H 12/09/17 05:25 Creatinine 1.1 mg/dL (0.7-1.3) 12/09/17 05:25 Est GFR ( Amer) TNP 12/09/17 05:25 Est GFR (Non-Af Amer) TNP 12/09/17 05:25 BUN/Creatinine Ratio 28.2 12/09/17 05:25 Glucose 197 mg/dL (70-105) H 12/09/17 05:25 POC Glucose 206 MG/DL (70 - 105) H 12/09/17 23:32 Hemoglobin A1c % 7.5 % (4.0-6.0) H 12/06/17 18:33 Calcium 8.4 mg/dL (8.6-10.3) L 12/09/17 05:25 Total Bilirubin 0.5 mg/dL (0.3-1.0) 12/09/17 05:25 AST 11 U/L (13-39) L 12/09/17 05:25 ALT 8 U/L (7-52) 12/09/17 05:25 Alkaline Phosphatase 41 U/L (34-104) 12/09/17 05:25 Total Protein 5.8 gm/dL (6.0-8.3) L 12/09/17 05:25 Albumin 2.6 gm/dL (4.2-5.5) L 12/09/17 05:25 Globulin 3.2 gm/dL 12/09/17 05:25 Albumin/Globulin Ratio 0.8 (1.0-1.8) L 12/09/17 05:25 Urine Source CATH 12/06/17 19:40 Urine Color YELLOW 12/06/17 19:40 Urine Clarity SLIGHTLY HAZY (CLEAR) 12/06/17 19:40 Urine pH 7.5 (4.6 - 8.0) 12/06/17 19:40 Ur Specific [place] 1.015 (1.005-1.030) 12/06/17 19:40 Urine Protein 100 mg/dL (NEGATIVE) H 12/06/17 19:40 Urine Glucose (UA) 500 mg/dL (NEGATIVE) H 12/06/17 19:40 Urine Ketones NEGATIVE mg/dL (NEGATIVE) 12/06/17 19:40 Urine Blood LARGE (NEGATIVE) H 12/06/17 19:40 Urine Nitrate NEGATIVE (NEGATIVE) 12/06/17 19:40 Urine Bilirubin NEGATIVE (NEGATIVE) 12/06/17 19:40 Urine Urobilinogen 0.2 E.U./dL (0.2 - 1.0) 12/06/17 19:40 Ur Leukocyte Esterase NEGATIVE (NEGATIVE) 12/06/17 19:40 Urine RBC 10-25 /hpf (0-5) H 12/06/17 19:40 Urine WBC 2-5 /hpf (0-5) 12/06/17 19:40 Ur Epithelial Cells OCCASIONAL /lpf (FEW) 12/06/17 19:40 Urine Bacteria NONE SEEN /hpf (NONE SEEN) 12/06/17 19:40 Urine Yeast MODERATE /hpf (NONE SEEN) H 12/06/17 19:40 Influenza A (Rapid) NEG FOR INF A 12/06/17 21:20 Influenza B (Rapid) NEG FOR INF B 12/06/17 21:20 - Physical Exam Vitals and I&O: Vital Signs Temp 97 F 12/09/17 19:58 Pulse 77 12/09/17 19:58 Resp 18 12/09/17 20:00 BP 154/83 12/09/17 19:58 Pulse Ox 96 12/09/17 19:58 Intake & Output 12/09/17 12/09/17 12/10/17 06:59 18:59 06:59 Intake Total 1899 1969 Balance 1899 1969 Weight (lbs) 57.017 kg 57.017 kg Intake: Intake, IV Amount 1100 1050 Fluconazole 100mg/50mL 50 100 mg In 50 ml @ 100 mls /hr IV Q24HR [facility] Rx#: [id number] Piperacillin Sodium/ 50 50 Tazobact 2.25 gm In Sodium Chloride 0.9% 50 ml @ 100 mls/hr IV Q8H [facility] Rx#:[id number] Sodium Chloride 0.45% 1, 1000 1000 000 ml @ 75 mls/hr IV . [id number] [facility] Rx#:[id number] Oral 0 Tube Feeding 600 720 Other 200 200 Other: # Voids 3 4 # Bowel Movements 1 1 Stool Characteristics Soft Soft Soft Black Black Black Green Green Green Weight Source Bedscale Bedscale Active Medications: Current Medications Acetaminophen (Tylenol) 650 mg GT Q4HR PRN PRN Reason: Mild Pain or Fever >101 Stop: 02/04/18 22:55 Acetaminophen (Tylenol Extra Strength) 1,000 mg GT Q4HR PRN PRN Reason: Pain (Moderate) Stop: 02/04/18 22:55 Albuterol Sulfate (Albuterol 2.5mg/3ml Neb Ud) 2.5 mg HHN Q4HRT PRN PRN Reason: Shortness of Breath Stop: 02/04/18 22:55 Ascorbic Acid (Vitamin C) 500 mg GT DAILY [facility] Stop: 02/05/18 08:59 Last Admin: 12/09/17 08:44 Dose: 500 mg Bisacodyl (Dulcolax 10 Mg Supp) 10 mg RC DAILY PRN PRN Reason: IF MOM INEFFECTIVE Stop: 02/04/18 22:55 [place] Oil/[place] Balsam/Trypsin (Venelex) 1 appl TP DAILY [facility] Stop: 02/05/18 08:59 Last Admin: 12/09/17 08:45 Dose: 1 appl Docusate Sodium (Colace) 100 mg PO DAILY [facility] Stop: 02/05/18 08:59 Last Admin: 12/09/17 08:45 Dose: 100 mg Ferrous Sulfate (Iron) 300 mg GT Q12HR [facility] Stop: 02/05/18 08:59 Last Admin: 12/09/17 20:56 Dose: 300 mg Heparin Sodium (Porcine) (Heparin) 5,000 units SUBQ Q12HR [facility] Stop: 02/05/18 08:59 Last Admin: 12/09/17 20:56 Dose: 5,000 units Fluconazole (Diflucan) 100 mg in 50 mls @ 100 mls/hr IV Q24HR [facility] Stop: 02/05/18 21:59 Last Admin: 12/09/17 21:02 Dose: 100 mls/hr Sodium Chloride (Nacl 0.45%) 1,000 mls @ 75 mls/hr IV .[id number] [facility] Stop: 02/04/18 23:14 Last Admin: 12/09/17 14:50 Dose: 75 mls/hr Piperacillin Sod/Tazobactam (Sod 2.25 gm/ Sodium Chloride) 50 mls @ 100 mls/hr IV Q8H [facility] Stop: 02/05/18 01:59 Last Admin: 12/09/17 17:18 Dose: 100 mls/hr Insulin Aspart (Novolog Insulin Sliding Scale) 0 units SUBQ Q6HR [facility]; Protocol Stop: 02/04/18 00:00 Last Admin: 12/09/17 18:29 Dose: 5 units Ipratropium [place] (Atrovent Neb 0.5mg/2.5ml) 0.5 mg HHN Q6HRT PRN PRN Reason: Shortness Of Breath/WHEEZING Stop: 02/04/18 22:55 Lactobacillus Rhamnosus (Culturelle 15b) 1 each GT DAILY [facility] Stop: 02/05/18 08:59 Last Admin: 12/09/17 08:44 Dose: 1 each Magnesium Hydroxide (Milk Of Magnesia) 30 ml GT HS PRN PRN Reason: Constipation Stop: 02/04/18 22:55 Metoprolol Tartrate (Lopressor) 100 mg GT Q12H [facility] Stop: 02/05/18 00:59 Last Admin: 12/09/17 12:27 Dose: 100 mg Miscellaneous (Probiotic Screen) 1 ea MC PRN PRN PRN Reason: PROTOCOL Stop: 02/06/18 13:29 Mupirocin (Bactroban Oint) 1 appl NS BID [facility] Stop: 02/05/18 08:59 Last Admin: 12/09/17 17:18 Dose: Not Given Nitroglycerin (Nitrostat) 0.4 mg SL Q5MIN PRN PRN Reason: Chest Pain Stop: 02/04/18 22:55 Sodium Phosphate (Fleet Enema) 135 ml RC Q48H PRN PRN Reason: IF DULCOLAX INEFFECTIVE Stop: 02/04/18 22:55 Zinc Sulfate (Zinc Sulfate) 220 mg GT DAILY [facility] Stop: 02/05/18 08:59 Last Admin: 12/09/17 08:45 Dose: 220 mg General: weak, lethargic, congested, demented HEENT: NC/AT, PERRLA, EOMI, anicteric sclerae, throat clear Neck: Supple, No JVD, No LAD Lungs: congested, wheezing, ronchi Cardiovascular: RRR, Normal S1, Normal S2 Abdomen: soft, non-tender, non-distended Extremities: clear, other (left foot decubitus ulcers.) Neurological: no change - Procedures Procedures: Procedures Procedure Code Date 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 Yeast UTI: diflucan IVPB 200mg daily. MATTHIAS: IVF; try to avoid nephrotoxic meds. Dehydration: IVF. ALOC: multifactorial. Decubitus ulcers: worst in left foot. Respiratory Insufficiency: aspiration precaution is being exercised. Dysphagia: Gtube care provided. OOCDM: SSRI low dose; may need to adjust meds. Fever: resolving. Nutritional Asmnt/Malnutr-PDOC - Dietary Evaluation Malnutrition Findings (Please click <Entered> for more info): Nutritional Asmnt/Malnutrition Start: 12/07/17 17: 11 Text: Status: Complete Freq: Protocol: Document 12/07/17 17:11 LCHENG (Rec: 12/07/17 17:47 [email or web address]) Nutritional Asmnt/Malnutrition Patient General Information Nutritional Screening High Risk Consult Diagnosis dehydration, hyperglycemia, acute febrile illness Pertinent Medical Hx/Surgical Hx DM, asthma/COPD, dementia, metabilic encephalopathy, leukocytosis, decubiti both ankles, atherosclerotic herat disease, renal failure Subjective Information pt seen resting in bed at time of visit. Consult received for glucseo 382 at admission. Current Diet Order/ Nutrition Support glucerna 1.2 50ml/hr x 20hr, providing 1200kcal, 60g protein Pertinent Medications vit C, colace, iron, novolog, culturelle, piperacillin, nacl 0.45%, zinc Pertinent Labs 12/06 Na 146, BUN 71, Cr 1.6, glucose 382 12/07 POC 190-254 Nutritional Hx/Data Height 1.7 m Height (Calculated Centimeters) 170.2 Current Weight (lbs) 63.049 kg Weight (Calculated Kilograms) 63.0 Weight (Calculated Grams) 82108.3 [place] Body Weight 148 Body Mass Index (BMI) 21.7 Weight Status Approriate GI Symptoms GI Symptoms None Last BM not indicated Difficult in: None Usual diet at home glucerna 1.5 50ml/hr x 20hr Skin Integrity/Comment: decubitus ulceration to right ankle, right toe, left toe, left ankle, scar to sacrum ernestina 11 Estimated Nutritional Goals BEE in Kcals: Using Current wt Calories/Kcals/Kg 25-30 Kcals Calculated 4756-6544 Protein: Using Current wt Protein g/k.2 monitor renal labs Protein Calculated 75 Fluid: ml 1701-2016ml (1ml/kcal) Nutritional Problem 2. Problem Problem increased nutrition needs Etiology impaired skin integrity Signs/Symptoms: decubitus multiple site 1. Problem Problem altered nutrition related labs Etiology hx of renla failure, DM Signs/Symptoms: Na 146, BUN 71, Cr 1.6, glucose 382, POC 190-254 Intervention/Recommendation Comments 1. Recommend increase glucerna 1.2 to 60ml/hr x 20hr. It will provide 1440kcal, 72g protein, 966ml free water, meeting 100% of nutritional needs. PHILL Guy notified. 2. Monitor TF rate, tolerance, wt, skin integrity and labs 3. F/U as high risk in 2-3 days, 12/09-11/09 Expected Outcomes/Goals Expected Outcomes/Goals 1. Pt to meet at least 75% of nutritional needs via nutrition support with tolerance 2. Wt stability, skin to remain intact, labs to approach WNL.
[2017-12-10] MEDS: Sodium Chloride 0.45% 1,000 ML IV SCH ×2 (02:57→17:09)
[2017-12-10] MEDS: INSULIN ASPART SLIDING SCALE 100 UNITS/ML UNIT SUBQ SCH ×5 (05:33→17:20)
[2017-12-10] MEDS: Ferrous Sulfate 300 MG/5 ML UDC GT SCH ×2 (08:47→20:42)
[2017-12-10] MEDS: Multivitamin w/ Minerals Tab GT SCH (08:47)
[2017-12-10] MEDS: Lactobacillus Rhamnosus GG 15 Billion CFU CAP.SPRINK GT SCH (08:47)
[2017-12-10] MEDS: Venelex 60gm Tube TP SCH (09:04)
[2017-12-10] MEDS ORDERED: FLUCONAZOLE IV ONE (20:59)
[2017-12-10] MEDS ORDERED: Fluconazole 200mg/100mL 200 MG/100 ML BAG IV ONE (22:13)
[2017-12-10] MEDS: Fluconazole 100mg/50mL 100 MG/50 ML BOTTLE IV SCH (22:28)
--- NOTE | 2017-12-10 23:57 | Internal Medicine Prog Note ---
Internal Medicine Subjective - Subjective Service Date: 12/10/17 Patient seen and examined:: without staff Patient is:: asleep, non-verbal, non-interactive, arousable, in bed Per staff patient has:: no adverse event Internal Medicine Objective - Results Result Diagrams: 12/09/17 05:25 12/09/17 05:25 Recent Labs: Laboratory Last Values WBC 7.7 Th/cmm (4.8-10.8) 12/09/17 05:25 RBC 2.70 Mil/cmm (3.80-5.80) L 12/09/17 05:25 Hgb 9.6 gm/dL (12-16) L 12/09/17 05:25 Hct 28.2 % (41.0-60) L 12/09/17 05:25 MCV 104.3 fl (80-99) H 12/09/17 05:25 MCH 35.4 pg (27.0-31.0) H 12/09/17 05:25 MCHC Differential 33.9 pg (28.0-36.0) 12/09/17 05:25 RDW 15.4 % (11.5-20.0) 12/09/17 05:25 Plt Count 190 Th/cmm (150-400) 12/09/17 05:25 MPV 7.3 fl 12/09/17 05:25 Neutrophils % 67.8 % (40.0-80.0) 12/09/17 05:25 Lymphocytes % 16.7 % (20.0-50.0) L 12/09/17 05:25 Monocytes % 12.2 % (2.0-10.0) H 12/09/17 05:25 Eosinophils % 2.6 % (0.0-5.0) 12/09/17 05:25 Basophils % 0.7 % (0.0-2.0) 12/09/17 05:25 Sodium 143 mEq/L (136-145) 12/09/17 05:25 Potassium 3.4 mEq/L (3.5-5.1) L 12/09/17 05:25 Chloride 114 mEq/L (98-107) H 12/09/17 05:25 Carbon Dioxide 23.3 mEq/L (21.0-31.0) 12/09/17 05:25 Anion Gap 9.1 (7.0-16.0) 12/09/17 05:25 BUN 31 mg/dL (7-25) H 12/09/17 05:25 Creatinine 1.1 mg/dL (0.7-1.3) 12/09/17 05:25 Est GFR ( Amer) TNP 12/09/17 05:25 Est GFR (Non-Af Amer) TNP 12/09/17 05:25 BUN/Creatinine Ratio 28.2 12/09/17 05:25 Glucose 197 mg/dL (70-105) H 12/09/17 05:25 POC Glucose 153 MG/DL (70 - 105) H 12/10/17 16:57 Hemoglobin A1c % 7.5 % (4.0-6.0) H 12/06/17 18:33 Calcium 8.4 mg/dL (8.6-10.3) L 12/09/17 05:25 Total Bilirubin 0.5 mg/dL (0.3-1.0) 12/09/17 05:25 AST 11 U/L (13-39) L 12/09/17 05:25 ALT 8 U/L (7-52) 12/09/17 05:25 Alkaline Phosphatase 41 U/L (34-104) 12/09/17 05:25 Total Protein 5.8 gm/dL (6.0-8.3) L 12/09/17 05:25 Albumin 2.6 gm/dL (4.2-5.5) L 12/09/17 05:25 Globulin 3.2 gm/dL 12/09/17 05:25 Albumin/Globulin Ratio 0.8 (1.0-1.8) L 12/09/17 05:25 Urine Source CATH 12/06/17 19:40 Urine Color YELLOW 12/06/17 19:40 Urine Clarity SLIGHTLY HAZY (CLEAR) 12/06/17 19:40 Urine pH 7.5 (4.6 - 8.0) 12/06/17 19:40 Ur Specific [place] 1.015 (1.005-1.030) 12/06/17 19:40 Urine Protein 100 mg/dL (NEGATIVE) H 12/06/17 19:40 Urine Glucose (UA) 500 mg/dL (NEGATIVE) H 12/06/17 19:40 Urine Ketones NEGATIVE mg/dL (NEGATIVE) 12/06/17 19:40 Urine Blood LARGE (NEGATIVE) H 12/06/17 19:40 Urine Nitrate NEGATIVE (NEGATIVE) 12/06/17 19:40 Urine Bilirubin NEGATIVE (NEGATIVE) 12/06/17 19:40 Urine Urobilinogen 0.2 E.U./dL (0.2 - 1.0) 12/06/17 19:40 Ur Leukocyte Esterase NEGATIVE (NEGATIVE) 12/06/17 19:40 Urine RBC 10-25 /hpf (0-5) H 12/06/17 19:40 Urine WBC 2-5 /hpf (0-5) 12/06/17 19:40 Ur Epithelial Cells OCCASIONAL /lpf (FEW) 12/06/17 19:40 Urine Bacteria NONE SEEN /hpf (NONE SEEN) 12/06/17 19:40 Urine Yeast MODERATE /hpf (NONE SEEN) H 12/06/17 19:40 Influenza A (Rapid) NEG FOR INF A 12/06/17 21:20 Influenza B (Rapid) NEG FOR INF B 12/06/17 21:20 - Physical Exam Vitals and I&O: Vital Signs Temp 97.4 F 12/10/17 20:00 Pulse 72 12/10/17 20:00 Resp 18 12/10/17 23:00 BP 127/58 12/10/17 20:00 Pulse Ox 97 12/10/17 20:00 Intake & Output 12/10/17 12/10/17 12/11/17 06:59 18:59 06:59 Intake Total 2016.50 821.25 Balance 821.25 Weight (lbs) 64.41 kg Intake: Intake, IV Amount 1237.50 821.25 Fluconazole 100mg/50mL 50 100 mg In 50 ml @ 100 mls /hr IV Q24HR [facility] Rx#: [id number] Piperacillin Sodium/ 50 50 Tazobact 2.25 gm In Sodium Chloride 0.9% 50 ml @ 100 mls/hr IV Q8H [facility] Rx#:[id number] Sodium Chloride 0.45% 1, 1137.50 771.25 000 ml @ 75 mls/hr IV . [id number] [facility] Rx#:[id number] Oral 0 Tube Feeding 480 Other 300 Other: # Voids 3 # Bowel Movements 1 Stool Characteristics Soft Soft Black Black Green Green Weight Source Bedscale Active Medications: Current Medications Acetaminophen (Tylenol) 650 mg GT Q4HR PRN PRN Reason: Mild Pain or Fever >101 Stop: 02/04/18 22:55 Acetaminophen (Tylenol Extra Strength) 1,000 mg GT Q4HR PRN PRN Reason: Pain (Moderate) Stop: 02/04/18 22:55 Albuterol Sulfate (Albuterol 2.5mg/3ml Neb Ud) 2.5 mg HHN Q4HRT PRN PRN Reason: Shortness of Breath Stop: 02/04/18 22:55 Last Admin: 12/10/17 08:45 Dose: 2.5 mg Ascorbic Acid (Vitamin C) 500 mg GT DAILY [facility] Stop: 02/05/18 08:59 Last Admin: 12/10/17 08:47 Dose: 500 mg Bisacodyl (Dulcolax 10 Mg Supp) 10 mg RC DAILY PRN PRN Reason: IF MOM INEFFECTIVE Stop: 02/04/18 22:55 [place] Oil/[place] Balsam/Trypsin (Venelex) 1 appl TP DAILY [facility] Stop: 02/05/18 08:59 Last Admin: 12/10/17 09:04 Dose: 1 appl Docusate Sodium (Colace) 100 mg PO DAILY [facility] Stop: 02/05/18 08:59 Last Admin: 12/10/17 08:47 Dose: 100 mg Ferrous Sulfate (Iron) 300 mg GT Q12HR [facility] Stop: 02/05/18 08:59 Last Admin: 12/10/17 20:42 Dose: 300 mg Heparin Sodium (Porcine) (Heparin) 5,000 units SUBQ Q12HR [facility] Stop: 02/05/18 08:59 Last Admin: 12/10/17 20:42 Dose: 5,000 units Fluconazole (Diflucan) 100 mg in 50 mls @ 100 mls/hr IV Q24HR [facility] Stop: 02/05/18 21:59 Last Admin: 12/10/17 22:28 Dose: 100 mls/hr Sodium Chloride (Nacl 0.45%) 1,000 mls @ 75 mls/hr IV .[id number] [facility] Stop: 02/04/18 23:14 Last Admin: 12/10/17 17:09 Dose: 75 mls/hr Piperacillin Sod/Tazobactam (Sod 2.25 gm/ Sodium Chloride) 50 mls @ 100 mls/hr IV Q8H [facility] Stop: 02/05/18 01:59 Last Admin: 12/10/17 17:08 Dose: 100 mls/hr Insulin Aspart (Novolog Insulin Sliding Scale) 0 units SUBQ Q6HR [facility]; Protocol Stop: 02/04/18 00:00 Last Admin: 12/10/17 17:20 Dose: 3 units Ipratropium [place] (Atrovent Neb 0.5mg/2.5ml) 0.5 mg HHN Q6HRT PRN PRN Reason: Shortness Of Breath/WHEEZING Stop: 02/04/18 22:55 Last Admin: 12/10/17 08:45 Dose: 0.5 mg Lactobacillus Rhamnosus (Culturelle 15b) 1 each GT DAILY [facility] Stop: 02/05/18 08:59 Last Admin: 12/10/17 08:47 Dose: 1 each Magnesium Hydroxide (Milk Of Magnesia) 30 ml GT HS PRN PRN Reason: Constipation Stop: 02/04/18 22:55 Metoprolol Tartrate (Lopressor) 100 mg GT Q12H [facility] Stop: 02/05/18 00:59 Last Admin: 12/10/17 12:43 Dose: 100 mg Miscellaneous (Probiotic Screen) 1 ea MC PRN PRN PRN Reason: PROTOCOL Stop: 02/06/18 13:29 Nitroglycerin (Nitrostat) 0.4 mg SL Q5MIN PRN PRN Reason: Chest Pain Stop: 02/04/18 22:55 Sodium Phosphate (Fleet Enema) 135 ml RC Q48H PRN PRN Reason: IF DULCOLAX INEFFECTIVE Stop: 02/04/18 22:55 Zinc Sulfate (Zinc Sulfate) 220 mg GT DAILY [facility] Stop: 02/05/18 08:59 Last Admin: 12/10/17 08:46 Dose: 220 mg General: weak, lethargic, congested, demented HEENT: NC/AT, PERRLA, EOMI, anicteric sclerae, throat clear Neck: Supple, No JVD, No LAD Lungs: congested, wheezing, ronchi Cardiovascular: RRR, Normal S1, Normal S2 Abdomen: soft, non-tender, non-distended Extremities: clear, other (left foot decubitus ulcers.) Neurological: no change - Procedures Procedures: Procedures Procedure Code Date 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 Hypokalemia: supplement. Yeast UTI: diflucan IVPB 200mg daily. MATTHIAS: IVF; try to avoid nephrotoxic meds. Dehydration: IVF. ALOC: multifactorial. Respiratory Insufficiency: aspiration precaution is being exercised. Dysphagia: Gtube care provided. OOCDM: SSRI low dose; may need to adjust meds. Fever: resolving. Nutritional Asmnt/Malnutr-PDOC - Dietary Evaluation Malnutrition Findings (Please click <Entered> for more info): Nutritional Asmnt/Malnutrition Start: 12/07/17 17: 11 Text: Status: Complete Freq: Protocol: Document 12/07/17 17:11 LCBEVERLEYG (Rec: 12/07/17 17:47 LCBEVERLEYG [email or web address]) Nutritional Asmnt/Malnutrition Patient General Information Nutritional Screening High Risk Consult Diagnosis dehydration, hyperglycemia, acute febrile illness Pertinent Medical Hx/Surgical Hx DM, asthma/COPD, dementia, metabilic encephalopathy, leukocytosis, decubiti both ankles, atherosclerotic herat disease, renal failure Subjective Information pt seen resting in bed at time of visit. Consult received for glucseo 382 at admission. Current Diet Order/ Nutrition Support glucerna 1.2 50ml/hr x 20hr, providing 1200kcal, 60g protein Pertinent Medications vit C, colace, iron, novolog, culturelle, piperacillin, nacl 0.45%, zinc Pertinent Labs 12/06 Na 146, BUN 71, Cr 1.6, glucose 382 12/07 POC 190-254 Nutritional Hx/Data Height 1.7 m Height (Calculated Centimeters) 170.2 Current Weight (lbs) 63.049 kg Weight (Calculated Kilograms) 63.0 Weight (Calculated Grams) 51989.3 [place] Body Weight 148 Body Mass Index (BMI) 21.7 Weight Status Approriate GI Symptoms GI Symptoms None Last BM not indicated Difficult in: None Usual diet at home glucerna 1.5 50ml/hr x 20hr Skin Integrity/Comment: decubitus ulceration to right ankle, right toe, left toe, left ankle, scar to sacrum ernestina 11 Estimated Nutritional Goals BEE in Kcals: Using Current wt Calories/Kcals/Kg 25-30 Kcals Calculated 7029-3871 Protein: Using Current wt Protein g/k.2 monitor renal labs Protein Calculated 75 Fluid: ml 1701-2016ml (1ml/kcal) Nutritional Problem 2. Problem Problem increased nutrition needs Etiology impaired skin integrity Signs/Symptoms: decubitus multiple site 1. Problem Problem altered nutrition related labs Etiology hx of renla failure, DM Signs/Symptoms: Na 146, BUN 71, Cr 1.6, glucose 382, POC 190-254 Intervention/Recommendation Comments 1. Recommend increase glucerna 1.2 to 60ml/hr x 20hr. It will provide 1440kcal, 72g protein, 966ml free water, meeting 100% of nutritional needs. PHILL Guy notified. 2. Monitor TF rate, tolerance, wt, skin integrity and labs 3. F/U as high risk in 2-3 days, 12/09-11/09 Expected Outcomes/Goals Expected Outcomes/Goals 1. Pt to meet at least 75% of nutritional needs via nutrition support with tolerance 2. Wt stability, skin to remain intact, labs to approach WNL.
[2017-12-11] MEDS: INSULIN ASPART SLIDING SCALE 100 UNITS/ML UNIT SUBQ SCH ×5 (00:33→17:05)
[2017-12-11 05:24] LABS: HEMATOCRIT 28.1 % (41.0-60); HEMOGLOBIN 9.9 gm/dL (12-16); MEAN CELL VOLUME 103.1 fl (80-99); MEAN CORPUSCULAR HEMOGLOBIN 36.3 pg (27.0-31.0); MEAN CORPUSCULAR HGB CONC 35.2 pg (28.0-36.0); MEAN PLATELET VOLUME 8.5 fl; PLATELET COUNT 162 Th/cmm (150-400); RED BLOOD COUNT 2.72 Mil/cmm (3.80-5.80); RED CELL DISTRIBUTION WIDTH 14.6 % (11.5-20.0); WHITE BLOOD COUNT 13.1 Th/cmm (4.8-10.8)
[2017-12-11 05:56] LABS: BAND NEUTROPHILE 4 % (0-10); EOSINOPHIL 2 % (0-5); LYMPHOCYTE 23 % (20-50); MONOCYTE 1 % (2-10); NEUTROPHILS 70 % (40-80); OVALOCYTES 1+; PLATELET ESTIMATE ADEQUATE (NORMAL)
[2017-12-11 06:13] LABS: BUN - UREA NITROGEN 18 mg/dL (7-25); CALCIUM SERUM 8.4 mg/dL (8.6-10.3); CARBON DIOXIDE 19.9 mEq/L (21.0-31.0); CHLORIDE 108 mEq/L (98-107); CREATININE - SERUM 0.9 mg/dL (0.7-1.3); GLUCOSE 126 mg/dL (70-105); POTASSIUM SERUM 3.9 mEq/L (3.5-5.1); SODIUM SERUM 135 mEq/L (136-145)
[2017-12-11] MEDS: Lactobacillus Rhamnosus GG 15 Billion CFU CAP.SPRINK GT SCH (08:57)
[2017-12-11] MEDS: Ferrous Sulfate 300 MG/5 ML UDC GT SCH ×2 (08:57→21:12)
[2017-12-11] MEDS: Multivitamin w/ Minerals Tab GT SCH (08:57)
[2017-12-11] MEDS: Venelex 60gm Tube TP SCH (13:14)
[2017-12-11] MEDS: Sodium Chloride 0.45% 1,000 ML IV SCH (16:59)
[2017-12-11] MEDS: Fluconazole 100mg/50mL 100 MG/50 ML BOTTLE IV SCH (17:01)
[2017-12-11] MEDS ORDERED: Fluconazole 100mg/50mL 100 MG/50 ML BOTTLE IV SCH (18:00)
--- NOTE | 2017-12-11 23:54 | Internal Medicine Prog Note ---
Internal Medicine Subjective - Subjective Service Date: 12/11/17 Patient seen and examined:: without staff Patient is:: asleep, non-verbal, non-interactive, arousable, in bed Per staff patient has:: no adverse event Internal Medicine Objective - Results Result Diagrams: 12/11/17 04:30 12/11/17 04:30 Recent Labs: Laboratory Last Values WBC 13.1 Th/cmm (4.8-10.8) H 12/11/17 04:30 RBC 2.72 Mil/cmm (3.80-5.80) L 12/11/17 04:30 Hgb 9.9 gm/dL (12-16) L 12/11/17 04:30 Hct 28.1 % (41.0-60) L 12/11/17 04:30 MCV 103.1 fl (80-99) H 12/11/17 04:30 MCH 36.3 pg (27.0-31.0) H 12/11/17 04:30 MCHC Differential 35.2 pg (28.0-36.0) 12/11/17 04:30 RDW 14.6 % (11.5-20.0) 12/11/17 04:30 Plt Count 162 Th/cmm (150-400) 12/11/17 04:30 MPV 8.5 fl 12/11/17 04:30 Add Manual Diff YES 12/11/17 04:30 Neutrophils % 67.8 % (40.0-80.0) 12/09/17 05:25 Band Neutrophils % 4 % (0-10) 12/11/17 04:30 Lymphocytes % 16.7 % (20.0-50.0) L 12/09/17 05:25 Monocytes % 12.2 % (2.0-10.0) H 12/09/17 05:25 Eosinophils % 2.6 % (0.0-5.0) 12/09/17 05:25 Basophils % 0.7 % (0.0-2.0) 12/09/17 05:25 Neutrophils (Manual) 70 % (40-80) 12/11/17 04:30 Lymphocytes 23 % (20-50) 12/11/17 04:30 Monocytes 1 % (2-10) L 12/11/17 04:30 Eosinophils 2 % (0-5) 12/11/17 04:30 Platelet Estimate ADEQUATE (NORMAL) 12/11/17 04:30 Ovalocytes 1+ 12/11/17 04:30 Sodium 135 mEq/L (136-145) L 12/11/17 04:30 Potassium 3.9 mEq/L (3.5-5.1) 12/11/17 04:30 Chloride 108 mEq/L (98-107) H 12/11/17 04:30 Carbon Dioxide 19.9 mEq/L (21.0-31.0) L 12/11/17 04:30 Anion Gap 11.0 (7.0-16.0) 12/11/17 04:30 BUN 18 mg/dL (7-25) 12/11/17 04:30 Creatinine 0.9 mg/dL (0.7-1.3) 12/11/17 04:30 Est GFR ( Amer) TNP 12/11/17 04:30 Est GFR (Non-Af Amer) TNP 12/11/17 04:30 BUN/Creatinine Ratio 20.0 12/11/17 04:30 Glucose 126 mg/dL (70-105) H 12/11/17 04:30 POC Glucose 137 MG/DL (70 - 105) H 12/11/17 15:55 Hemoglobin A1c % 7.5 % (4.0-6.0) H 12/06/17 18:33 Calcium 8.4 mg/dL (8.6-10.3) L 12/11/17 04:30 Total Bilirubin 0.5 mg/dL (0.3-1.0) 12/09/17 05:25 AST 11 U/L (13-39) L 12/09/17 05:25 ALT 8 U/L (7-52) 12/09/17 05:25 Alkaline Phosphatase 41 U/L (34-104) 12/09/17 05:25 Total Protein 5.8 gm/dL (6.0-8.3) L 12/09/17 05:25 Albumin 2.6 gm/dL (4.2-5.5) L 12/09/17 05:25 Globulin 3.2 gm/dL 12/09/17 05:25 Albumin/Globulin Ratio 0.8 (1.0-1.8) L 12/09/17 05:25 Urine Source CATH 12/06/17 19:40 Urine Color YELLOW 12/06/17 19:40 Urine Clarity SLIGHTLY HAZY (CLEAR) 12/06/17 19:40 Urine pH 7.5 (4.6 - 8.0) 12/06/17 19:40 Ur Specific [place] 1.015 (1.005-1.030) 12/06/17 19:40 Urine Protein 100 mg/dL (NEGATIVE) H 12/06/17 19:40 Urine Glucose (UA) 500 mg/dL (NEGATIVE) H 12/06/17 19:40 Urine Ketones NEGATIVE mg/dL (NEGATIVE) 12/06/17 19:40 Urine Blood LARGE (NEGATIVE) H 12/06/17 19:40 Urine Nitrate NEGATIVE (NEGATIVE) 12/06/17 19:40 Urine Bilirubin NEGATIVE (NEGATIVE) 12/06/17 19:40 Urine Urobilinogen 0.2 E.U./dL (0.2 - 1.0) 12/06/17 19:40 Ur Leukocyte Esterase NEGATIVE (NEGATIVE) 12/06/17 19:40 Urine RBC 10-25 /hpf (0-5) H 12/06/17 19:40 Urine WBC 2-5 /hpf (0-5) 12/06/17 19:40 Ur Epithelial Cells OCCASIONAL /lpf (FEW) 12/06/17 19:40 Urine Bacteria NONE SEEN /hpf (NONE SEEN) 12/06/17 19:40 Urine Yeast MODERATE /hpf (NONE SEEN) H 12/06/17 19:40 Influenza A (Rapid) NEG FOR INF A 12/06/17 21:20 Influenza B (Rapid) NEG FOR INF B 12/06/17 21:20 - Physical Exam Vitals and I&O: Vital Signs Temp 97.4 F 12/11/17 20:00 Pulse 72 12/11/17 20:00 Resp 18 12/11/17 20:00 BP 153/59 12/11/17 20:00 Pulse Ox 99 12/11/17 20:00 Intake & Output 12/11/17 12/11/17 12/12/17 06:59 18:59 06:59 Intake Total 1450 1050 Output Total 3 Balance 1450 1047 Weight (lbs) 64.41 kg 64.41 kg Intake: Intake, IV Amount 1050 50 Piperacillin Sodium/ 50 50 Tazobact 2.25 gm In Sodium Chloride 0.9% 50 ml @ 100 mls/hr IV Q8H ON LICENSE OF [facility] Rx#:[id number] Sodium Chloride 0.45% 1, 1000 000 ml @ 75 mls/hr IV . [id number] ON LICENSE OF [facility] Rx#:[id number] Tube Feeding 400 600 Other 400 Output: Urine 3 Other: # Voids 3 # Bowel Movements 3 Weight Source Bedscale Bedscale Active Medications: Current Medications Acetaminophen (Tylenol) 650 mg GT Q4HR PRN PRN Reason: Mild Pain or Fever >101 Stop: 02/04/18 22:55 Acetaminophen (Tylenol Extra Strength) 1,000 mg GT Q4HR PRN PRN Reason: Pain (Moderate) Stop: 02/04/18 22:55 Albuterol Sulfate (Albuterol 2.5mg/3ml Neb Ud) 2.5 mg HHN Q4HRT PRN PRN Reason: Shortness of Breath Stop: 02/04/18 22:55 Last Admin: 12/10/17 08:45 Dose: 2.5 mg Ascorbic Acid (Vitamin C) 500 mg GT DAILY ON LICENSE OF [facility] Stop: 02/05/18 08:59 Last Admin: 12/11/17 08:57 Dose: 500 mg Bisacodyl (Dulcolax 10 Mg Supp) 10 mg RC DAILY PRN PRN Reason: IF MOM INEFFECTIVE Stop: 02/04/18 22:55 [place] Oil/[place] Balsam/Trypsin (Venelex) 1 appl TP DAILY ON LICENSE OF [facility] Stop: 02/05/18 08:59 Last Admin: 12/11/17 13:14 Dose: 1 appl Docusate Sodium (Colace) 100 mg PO DAILY ON LICENSE OF [facility] Stop: 02/05/18 08:59 Last Admin: 12/11/17 08:57 Dose: 100 mg Ferrous Sulfate (Iron) 300 mg GT Q12HR ON LICENSE OF [facility] Stop: 02/05/18 08:59 Last Admin: 12/11/17 21:12 Dose: 300 mg Heparin Sodium (Porcine) (Heparin) 5,000 units SUBQ Q12HR ON LICENSE OF [facility] Stop: 02/05/18 08:59 Last Admin: 12/11/17 21:12 Dose: 5,000 units Sodium Chloride (Nacl 0.45%) 1,000 mls @ 75 mls/hr IV .[id number] ON LICENSE OF [facility] Stop: 02/04/18 23:14 Last Admin: 12/11/17 16:59 Dose: 75 mls/hr Piperacillin Sod/Tazobactam (Sod 2.25 gm/ Sodium Chloride) 50 mls @ 100 mls/hr IV Q8H DEMARCUS Stop: 02/05/18 01:59 Last Admin: 12/11/17 17:18 Dose: 100 mls/hr Fluconazole (Diflucan) 100 mg in 50 mls @ 50 mls/hr IV Q24H [facility]ARCUS Stop: 02/09/18 17:59 Last Admin: 12/11/17 17:01 Dose: 50 mls/hr Insulin Aspart (Novolog Insulin Sliding Scale) 0 units SUBQ Q6HR DEMARCUS; Protocol Stop: 02/04/18 00:00 Last Admin: 12/11/17 17:05 Dose: 2 units Ipratropium [place] (Atrovent Neb 0.5mg/2.5ml) 0.5 mg HHN Q6HRT PRN PRN Reason: Shortness Of Breath/WHEEZING Stop: 02/04/18 22:55 Last Admin: 12/10/17 08:45 Dose: 0.5 mg Lactobacillus Rhamnosus (Culturelle 15b) 1 each GT DAILY DEMARCUS Stop: 02/05/18 08:59 Last Admin: 12/11/17 08:57 Dose: 1 each Magnesium Hydroxide (Milk Of Magnesia) 30 ml GT HS PRN PRN Reason: Constipation Stop: 02/04/18 22:55 Metoprolol Tartrate (Lopressor) 100 mg GT Q12H DEMARCUS Stop: 02/05/18 00:59 Last Admin: 12/11/17 13:13 Dose: 100 mg Miscellaneous (Probiotic Screen) 1 ea MC PRN PRN PRN Reason: PROTOCOL Stop: 02/06/18 13:29 Nitroglycerin (Nitrostat) 0.4 mg SL Q5MIN PRN PRN Reason: Chest Pain Stop: 02/04/18 22:55 Sodium Phosphate (Fleet Enema) 135 ml RC Q48H PRN PRN Reason: IF DULCOLAX INEFFECTIVE Stop: 02/04/18 22:55 Zinc Sulfate (Zinc Sulfate) 220 mg GT DAILY DEMARCUS Stop: 02/05/18 08:59 Last Admin: 12/11/17 08:57 Dose: 220 mg General: weak, lethargic, congested, demented HEENT: NC/AT, PERRLA, EOMI, anicteric sclerae, throat clear Neck: Supple, No JVD, No LAD Lungs: congested, wheezing, ronchi Cardiovascular: RRR, Normal S1, Normal S2 Abdomen: soft, non-tender, non-distended Extremities: clear, other (left foot decubitus ulcers.) Neurological: no change - Procedures Procedures: Procedures Procedure Code Date CHANGE FEEDING DEVICE IN UP INTEST TRACT, [employer] APPROACH [id number] 11/08/17 Internal Medicine Assmt/Plan - Assessment Assessment: Leukocytosis: see orders; multifactorial; adjust ABX accordingly. Decubitus ulcers: worst in left foot; wound care. Hypokalemia: supplement. Yeast UTI: diflucan IVPB 200mg daily. MATTHIAS: IVF; try to avoid nephrotoxic meds. Dehydration: IVF. ALOC: multifactorial. Respiratory Insufficiency: aspiration precaution is being exercised. Dysphagia: Gtube care provided. OOCDM: SSRI low dose; may need to adjust meds. Fever: resolving. Nutritional Asmnt/Malnutr-PDOC - Dietary Evaluation Malnutrition Findings (Please click <Entered> for more info): Nutritional Asmnt/Malnutrition Start: 12/07/17 17: 11 Text: Status: Complete Freq: Protocol: Document 12/07/17 17:11 [email or web address] (Rec: 12/07/17 17:47 PRASHANT [email or web address]) Nutritional Asmnt/Malnutrition Patient General Information Nutritional Screening High Risk Consult Diagnosis dehydration, hyperglycemia, acute febrile illness Pertinent Medical Hx/Surgical Hx DM, asthma/COPD, dementia, metabilic encephalopathy, leukocytosis, decubiti both ankles, atherosclerotic herat disease, renal failure Subjective Information pt seen resting in bed at time of visit. Consult received for glucseo 382 at admission. Current Diet Order/ Nutrition Support glucerna 1.2 50ml/hr x 20hr, providing 1200kcal, 60g protein Pertinent Medications vit C, colace, iron, novolog, culturelle, piperacillin, nacl 0.45%, zinc Pertinent Labs 12/06 Na 146, BUN 71, Cr 1.6, glucose 382 12/07 POC 190-254 Nutritional Hx/Data Height 1.7 m Height (Calculated Centimeters) 170.2 Current Weight (lbs) 63.049 kg Weight (Calculated Kilograms) 63.0 Weight (Calculated Grams) 19480.3 [place] Body Weight 148 Body Mass Index (BMI) 21.7 Weight Status Approriate GI Symptoms GI Symptoms None Last BM not indicated Difficult in: None Usual diet at home glucerna 1.5 50ml/hr x 20hr Skin Integrity/Comment: decubitus ulceration to right ankle, right toe, left toe, left ankle, scar to sacrum ernestina 11 Estimated Nutritional Goals BEE in Kcals: Using Current wt Calories/Kcals/Kg 25-30 Kcals Calculated 8128-0686 Protein: Using Current wt Protein g/k.2 monitor renal labs Protein Calculated 75 Fluid: ml 1701-2016ml (1ml/kcal) Nutritional Problem 2. Problem Problem increased nutrition needs Etiology impaired skin integrity Signs/Symptoms: decubitus multiple site 1. Problem Problem altered nutrition related labs Etiology hx of renla failure, DM Signs/Symptoms: Na 146, BUN 71, Cr 1.6, glucose 382, POC 190-254 Intervention/Recommendation Comments 1. Recommend increase glucerna 1.2 to 60ml/hr x 20hr. It will provide 1440kcal, 72g protein, 966ml free water, meeting 100% of nutritional needs. PHILL Guy notified. 2. Monitor TF rate, tolerance, wt, skin integrity and labs 3. F/U as high risk in 2-3 days, 12/09-11/09 Expected Outcomes/Goals Expected Outcomes/Goals 1. Pt to meet at least 75% of nutritional needs via nutrition support with tolerance 2. Wt stability, skin to remain intact, labs to approach WNL.
[2017-12-12] MEDS: INSULIN ASPART SLIDING SCALE 100 UNITS/ML UNIT SUBQ SCH ×4 (02:06→17:30)
[2017-12-12] MEDS: Multivitamin w/ Minerals Tab GT SCH (08:50)
[2017-12-12] MEDS: Lactobacillus Rhamnosus GG 15 Billion CFU CAP.SPRINK GT SCH (08:50)
[2017-12-12] MEDS: Ferrous Sulfate 300 MG/5 ML UDC GT SCH (08:50)
[2017-12-12] MEDS: Fluconazole 100mg/50mL 100 MG/50 ML BOTTLE IV SCH (17:34)
[2017-12-12] MEDS: Venelex 60gm Tube TP SCH (17:41)
--- NOTE | 2017-12-17 22:26 | Discharge Summary ---
DATE OF DISCHARGE: 12/13/2017 FINAL DIAGNOSES: 1. Leukocytosis, on antibiotics. 2. Decubitus ulcer, received wound care. 3. Hypokalemia, supplemented. 4. Yeast urinary tract infection, on Diflucan. 5. Acute kidney injury, improved. 6. Dehydration, on IV fluid. 7. Altered level of consciousness. 8. Out of control diabetes, improving. 9. Fever, resolved. HOSPITAL COURSE: The patient is a 77-year-old [place] male admitted due to high fever, leukocytosis with urinary tract infection and decubitus ulcer, etc. The patient also has yeast urinary tract infection and dysphagia. The patient received IVPB antibiotics and RT protocol as well as wound care. The patient's condition stabilized and he was discharged to [facility]. DISCHARGE CONDITION: Stable. DISPOSITION: [facility]. DISCHARGE MEDICATION: Continue medications from here. DIET: Continue G-tube feeding. ACTIVITY: Bed rest. FOLLOWUP: Same day in [place]. [facility]# [id number]
== END 2017-12-12 21:10 | DRG 871 ==
LOC: ER 18:20 → TELE 22:00
PROVIDERS: ADMIT Internal Medicine; ATTEND Internal Medicine
DX: A41.9 Sepsis, unspecified organism (principal); G93.41 Metabolic encephalopathy; N39.0 Urinary tract infection, site not specified; N17.9 Acute kidney failure, unspecified; E86.0 Dehydration; Z93.1 Gastrostomy status; F03.90 Unspecified dementia, unspecified severity, without behavioral disturbance, psychotic disturbance, mood disturbance, and anxiety; L89.892 Pressure ulcer of other site, stage 2; E11.621 Type 2 diabetes mellitus with foot ulcer; L89.152 Pressure ulcer of sacral region, stage 2; L89.522 Pressure ulcer of left ankle, stage 2; J44.9 Chronic obstructive pulmonary disease, unspecified; I25.10 Atherosclerotic heart disease of native coronary artery without angina pectoris; E11.65 Type 2 diabetes mellitus with hyperglycemia; R13.10 Dysphagia, unspecified; E87.6 Hypokalemia; Z86.73 Personal history of transient ischemic attack (TIA), and cerebral infarction without residual deficits
CPT/HCPCS: 36415-UA; 71045-TC; 80048-TC; 80053-TC; 81001-TC; 82948-90; 83036-90; 85007-TC; 85025-TC; 87070-90; 87075-90; 87086-90; 87205-90; 87804-TC; 90779; 93005; 93925-TC; 93970-TC-50; 94640; 94760; 96374; J1450; J1815; J2543; J7613